=== PATIENT | female | born 1990 | race Caucasian/White ===

== ENCOUNTER 2021-09-25 02:14 | Observation (INO) ==
[2021-09-25] MEDS ORDERED: 0.9 % SODIUM CHLORIDE 1,000 ML IV ONE ×2 (02:20→03:27)
[2021-09-25] MEDS ORDERED: ONDANSETRON 4 MG/2 ML VIAL IV ONE (02:20)
--- NOTE | 2021-09-25 02:20 | Emergency Department Note ---
HPI General Chief complaint: Nausea/Vomiting/Diarrhea Stated complaint: nausea and vomiting Time Seen by Provider: 09/25/21 02:19 Source: patient Mode of arrival: ambulatory Limitations: no limitations History of Present Illness HPI Narrative: Narrative: 31-year-old female presents emergency department because of intractable vomiting. Patient states she was in good health up until 4 days ago. At that point she developed nausea and vomiting with diarrhea that continued for 2 days and left her exhausted and thirsty. She developed stomach pains from vomiting so much. She felt weak. Symptoms were constant. Nothing was making it better. She tried Pedialyte but that did not help. There is not associated with anything that she could put her finger on. Her discomfort was a 9 on a 0-to-10 scale unable to eat or drink. Dry heaves. Patient complains of dysuria and the need to urinate frequently. Bilateral lower back pain as well. Related Data Previous Rx's Medication Instructions Recorded trazodone 50 mg tablet 50 mg PO QHS PRN #30 tab 11/19/20 sertraline 25 mg tablet (Zoloft) 25 mg PO QDAY #30 tab 11/22/20 Allergies Allergy/AdvReac Type Severity Reaction Status Date / Time No Known Drug Allergies Allergy Verified 11/19/20 11:27 Review of Systems ROS ROS Narrative: Narrative: Constitutional: Denies fever Eyes: Denies eye pain ENT ED: Reports throat pain and rhinorrhea Cardiovascular: Denies chest pain Respiratory: Reports shortness of breath Gastrointestinal: Reports abdominal pain, nausea, vomiting and diarrhea Genitourinary: Reports dysuria Musculoskeletal: Reports back pain Integumentary: Denies rash Psychiatric: Reports anxiety and depression Hematological/Lymphatic: Denies easy bleeding PFSH Narrative Patient History Narrative: Narrative: Medical/Surgical/Family History All Active Problems (Updated 09/25/21 @ 07:31 by Minesh Crews MD) Severe sepsis (Acute) Pyelonephritis (Acute) Acute dehydration (Acute) Intractable vomiting (Acute) Anxiety and depression (Acute) Encounter for examination required by Department of Transportation (DOT) (Acute) Pedal edema (Acute) Alcoholism /alcohol abuse (Acute) Allergic reaction to bee sting (Acute) 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 if ASCUS or HPV positive= colposcopy. HPV negative and cytology negative age-appropriate retesting, discussed results with patient, she indicates understanding, encourage patient to quit tobacco and when she is ready she can contact me for Chantix No pertinent past medical history Surgical History H/O wisdom tooth extraction Hx of colonoscopy age 16 for IBS, normal Family History Grandfather Arthritis Paternal High blood pressure Maternal Mother High blood pressure Father High blood pressure Grandmother Migraines Brain cancer Social History Smoking Status: Current every day smoker Alcohol Intake Frequency: holiday/special occasion only Substance Use: marijuana Exam Narrative Narrative: Narrative: General Limitations: no limitations General appearance: Present alert and in distress Head Head: Present atraumatic, normocephalic and normal inspection Eye Eye: Present EOMI ENT ENT: Present mucous membranes dry Neck Neck: Present full ROM and trachea midline Respiratory Respiratory: Present normal lung sounds bilaterally; Absent respiratory distress or wheezes Cardiovascular Cardiovascular: Present regular rate and normal rhythm Adbominal Abdominal: Present soft and tenderness (Mild, suprapubic); Absent distention, guarding or rebound Extremities Extremities: Present normal inspection Back Back: Present tenderness (Bilateral lower back pain with palpation) Neurological Neurological: Present alert and oriented X3 Psychiatric Psychiatric: Present normal affect and normal mood Skin Skin: Present warm (WNL) and dry Course Reevaluation(s) Reevaluation #1: Nausea improved after the 4 mg of Zofran and the patient was able to sleep for a bit. She woke up and now the nausea has returned. She will be given an additional 4 mg of Zofran along with 5 mg of metoclopramide. Patient also complaining of frequent's burning sensation at the bladder for which I will give her Pyridium 200 mg p.o. Also complained of generalized pain especially in her lower back and to be given 2 mg of morphine for that. test came back negative. Urine dip suspicious for UTI with a positive nitrites. UA pending. CBC with normal white count normal hemoglobin. Lactic acid level elevated at 3.7 indicating sepsis. Patient was given Levaquin 750 mg IV for sepsis. 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 Time: 03:50 Reevaluation #2: Patient felt better for a bit and slept for 30 minutes but then nausea returned and vomiting. Patient request pain medication and she will be receiving morphine +1 mg of Ativan. Repeat lactate level shows continued elevation at 3.8. Sepsis exam done. In view of the patient having intractable nausea and vomiting and being septic with elevated lactic acid level I believe she will require admission and I have placed a call to our hospitalist. Time: 07:27 Vital Signs Vital signs: Vital Signs Pulse Rate 80 09/25/21 02:15 Respiratory Rate 17 09/25/21 02:15 Blood Pressure 114/91 09/25/21 02:15 Pulse Oximetry (%) 100 09/25/21 02:15 Pulse Rate 82 09/25/21 07:22 Respiratory Rate 17 09/25/21 02:15 Blood Pressure 116/77 09/25/21 07:22 Pulse Oximetry (%) 100 09/25/21 07:22 [facility] Narrative Medical decision making narrative: Narrative: Young woman presents to the emergency department with intractable vomiting of 4 days duration. Patient also had 2 days of diarrhea. Patient with dysuria. Differential diagnosis includes , urinary tract infection, pyelonephritis, gastroenteritis, food related illness, acute appendicitis, other. White count was 6.3 with a normal hemoglobin of 14.2. 67 neutrophils 24 lymphs, and 8 monos. Lactic acid level 3.8. Sodium 142 potassium 3.6, chloride 101, bicarb 26 with an anion gap of 15, all normal. BUN of 9 with creatinine of 0.6, normal. Glucose elevated at 124. Bilirubin normal at 0.3 with a mildly elevated AST of 52 and ALT that was normal at 28. Lipase was normal at 32. Emergency Department course patient received 4 mg of Zofran initially and was bolused a liter of normal saline. Her nausea improved and she was able to sleep for a bit but then she awoke and had nausea again. She was given additional 4 mg of Zofran along with 5 mg of metoclopramide IV. She was bolused 1 L of normal saline and her lactic acid level came back markedly elevated at 3.8. She was bolused a second liter of normal saline which will bring her total fluid volume greater than 30 mL/kg. test was negative. [id number] uri nalysis was positive for nitrites so suspicious for UTI. A formal urinalysis has been ordered. Patient was given 750 mg of Levaquin IV for sepsis. Patient source may be a pyelonephritis making this a good choice. Continued nausea vomiting. Elevated repeat lactate level 3.8. Consult hospitalist. 0730: discusse with Dr. Hernandez. he accepts and will see her when moved to inpatient side. Lab Data Lab results reviewed: Yes I reviewed the patient's lab results. Result diagrams: 09/25/21 02:41 09/25/21 02:41 Labs: Lab Results 09/25/21 09/25/21 09/25/21 Range/Units 02:41 02:41 04:12 WBC 6.3 (4.5-11.0) K/mcL RBC 4.52 (3.59-5.38) M/mcL Hgb 14.2 (11.2-15.7) g/dL Hct 40.7 (34.1-44.9) % MCV 90.0 (80.0-100.0) fL MCH 31.4 (26.0-34.0) pg MCHC 34.9 (31.0-36.0) g/dL RDW 12.4 (11.5-14.5) % Plt Count 193 (140-440) K/mcL MPV 10.7 H (7.4-10.4) fL Neut % (Auto) 67.1 (38.0-78.0) % Lymph % (Auto) 23.7 (15.5-49.0) % Crane % (Auto) 8.4 (1.0-12.0) % Eos % (Auto) 0 (0.0-7.0) % Baso % (Auto) 0.8 (0.0-2.0) % Lymph # (Auto) 1.50 (1.50-4.80) K/mcL [place] # (Auto) 0.53 (0.10-0.90) K/mcL Eos # (Auto) 0 (0.00-0.70) K/mcL Baso # (Auto) 0.05 (0.00-0.30) K/mcL Absolute Neutrophils 4.26 (1.80-8.00) K/mcL VBG Lactic Acid 3.8 H (0.5-2.0) mmol/L Sodium 142 (133-145) mmol/L Potassium 3.6 (3.3-5.1) mmol/L Chloride 101 (96-108) mmol/L Carbon Dioxide 26 (22-30) mmol/L Anion Gap 15.0 (8.0-16.0) BUN 9 (6-20) mg/dL Creatinine 0.6 (0.6-1.1) mg/dL GFR Calculation 119 Glucose 124 H (70-105) mg/dL Calcium 8.6 (8.6-10.4) mg/dL Total Bilirubin 0.3 (0.1-1.0) mg/dL AST 52 H (<32) U/L ALT 28 (<40) U/L Alkaline Phosphatase 63 (39-117) U/L Total Protein 6.4 (5.9-8.4) gm/dL Albumin 4.1 (3.2-5.2) gm/dL Globulin 2.3 (2.2-3.7) gm/dL Albumin/Globulin Ratio 1.8 (1.0-2.3) Lipase 32 (7-60) U/L Urine Color Yellow Urine Appearance Hazy A (Clear) Urine pH 7.0 (5.0-9.0) Ur Specific [place] 1.014 (1.000-1.035) Urine Protein Negative (Negative) mg/dL Urine Glucose (UA) Negative (Negative) mg/dL Urine Ketones Negative (Negative) mg/dL Urine Occult Blood Negative (Negative) mg/dL Urine Nitrate Pos A (Negative) Urine Bilirubin Negative (Negative) mg/dL Urine Urobilinogen Negative mg/dL Ur Leukocyte Esterase 75 A (Negative) /uL Urine RBC 1 (0-3) /hpf Urine WBC 3 (0-4) /hpf Ur Squamous Epith Cells 5 H (0-4) /hpf Urine Bacteria Mod A (0) /hpf Urine Mucus Few A (None) /hpf Ur Culture Indicated? No 09/25/21 Range/Units 05:51 WBC (4.5-11.0) K/mcL RBC (3.59-5.38) M/mcL Hgb (11.2-15.7) g/dL Hct (34.1-44.9) % MCV (80.0-100.0) fL MCH (26.0-34.0) pg MCHC (31.0-36.0) g/dL RDW (11.5-14.5) % Plt Count (140-440) K/mcL MPV (7.4-10.4) fL Neut % (Auto) (38.0-78.0) % Lymph % (Auto) (15.5-49.0) % Crane % (Auto) (1.0-12.0) % Eos % (Auto) (0.0-7.0) % Baso % (Auto) (0.0-2.0) % Lymph # (Auto) (1.50-4.80) K/mcL Crane # (Auto) (0.10-0.90) K/mcL Eos # (Auto) (0.00-0.70) K/mcL Baso # (Auto) (0.00-0.30) K/mcL Absolute Neutrophils (1.80-8.00) K/mcL VBG Lactic Acid 3.9 H* (0.5-2.0) mmol/L Sodium (133-145) mmol/L Potassium (3.3-5.1) mmol/L Chloride (96-108) mmol/L Carbon Dioxide (22-30) mmol/L Anion Gap (8.0-16.0) BUN (6-20) mg/dL Creatinine (0.6-1.1) mg/dL GFR Calculation Glucose (70-105) mg/dL Calcium (8.6-10.4) mg/dL Total Bilirubin (0.1-1.0) mg/dL AST (<32) U/L ALT (<40) U/L Alkaline Phosphatase (39-117) U/L Total Protein (5.9-8.4) gm/dL Albumin (3.2-5.2) gm/dL Globulin (2.2-3.7) gm/dL Albumin/Globulin Ratio (1.0-2.3) Lipase (7-60) U/L Urine Color Urine Appearance (Clear) Urine pH (5.0-9.0) Ur Specific [place] (1.000-1.035) Urine Protein (Negative) mg/dL Urine Glucose (UA) (Negative) mg/dL Urine Ketones (Negative) mg/dL Urine Occult Blood (Negative) mg/dL Urine Nitrate (Negative) Urine Bilirubin (Negative) mg/dL Urine Urobilinogen mg/dL Ur Leukocyte Esterase (Negative) /uL Urine RBC (0-3) /hpf Urine WBC (0-4) /hpf Ur Squamous Epith Cells (0-4) /hpf Urine Bacteria (0) /hpf Urine Mucus (None) /hpf Ur Culture Indicated? ED POC Tests ED POC Tests: HCG POC Results Negative Discharge Plan Patient/Caregiver Discharge Instructions Pt seen by [facility]ER/PA only: No Clinical Impression: Severe sepsis, Pyelonephritis, Acute dehydration, Intractable vomiting Patient Disposition: Xfer As Inpt ([facility]) Condition: Fair Follow up with: Diamond Newman ARNP [Primary Care Provider] - Prescriptions: No Action sertraline [Zoloft] 25 mg tablet 25 mg PO QDAY Qty: 30 1RF Rx Instructions: Take 25mg daily for two weeks and then 50mg daily. Take medication with food. trazodone 50 mg tablet 50 mg PO QHS PRN (Reason: insomnia) Qty: 30 1RF
[2021-09-25 03:11] LABS: Basophils # (Auto) 0.05 K/mcL (0.00-0.30); Basophils % (Auto) 0.8 % (0.0-2.0); Eosinophils # (Auto) 0 K/mcL (0.00-0.70); Eosinophils % (Auto) 0 % (0.0-7.0); Hematocrit 40.7 % (34.1-44.9); Hemoglobin 14.2 g/dL (11.2-15.7); Lymphocytes % (Auto) 23.7 % (15.5-49.0); Mean Corpuscular HGB Conc 34.9 g/dL (31.0-36.0); Mean Platelet Volume 10.7 fL (7.4-10.4); Monocytes # (Auto) 0.53 K/mcL (0.10-0.90); Monocytes % (Auto) 8.4 % (1.0-12.0); Neutrophils % (Auto) 67.1 % (38.0-78.0); Platelet Count 193 K/mcL (140-440); RBC 4.52 M/mcL (3.59-5.38); Red Cell Distribution Width 12.4 % (11.5-14.5); WBC 6.3 K/mcL (4.5-11.0)
[2021-09-25 03:29] LABS: ALT/SGPT 28 U/L (<40); AST/SGOT 52 U/L (<32); Albumin 4.1 gm/dL (3.2-5.2); Albumin/Globulin Ratio 1.8 (1.0-2.3); Alkaline Phosphatase 63 U/L (39-117); Bilirubin,Total 0.3 mg/dL (0.1-1.0); Blood Urea Nitrogen 9 mg/dL (6-20); Calcium 8.6 mg/dL (8.6-10.4); Carbon Dioxide 26 mmol/L (22-30); Chloride 101 mmol/L (96-108); Globulin 2.3 gm/dL (2.2-3.7); Glomerular Filtration Rate 119; Glucose 124 mg/dL (70-105)
[2021-09-25] MEDS ORDERED: LEVOFLOXACIN 750 MG/150 ML BAG IV ONE (03:43)
[2021-09-25] MEDS ORDERED: METOCLOPRAMIDE 10 MG/2 ML VIAL IV ONE ×2 (03:52→05:35)
[2021-09-25] MEDS ORDERED: ONDANSETRON 4 MG/2 ML VIAL IV PRN (03:52)
[2021-09-25] MEDS ORDERED: morphine 2 MG/ML VIAL IV ONE ×2 (03:55→06:16)
[2021-09-25] MEDS ORDERED: PHENAZOPYRIDINE 200 MG TABLET PO ONE (03:55)
[2021-09-25 04:56] LABS: Appearance,Urine HAZY (Clear); Bacteria,Urine MOD /hpf (0); Bilirubin,Urine Negative (Negative); Color,Urine YELLOW; Culture Indicated,Urine No; Glucose,Urine (UA) Negative (Negative); Ketones,Urine Negative (Negative); Leukocyte Esterase,Urine 75 /uL (Negative); Mucus,Urine FEW /hpf; Nitrate,Urine POS (Negative); Protein,Urine Negative (Negative); Specific Gravity,Urine 1.014 (1.000-1.035); Urine Blood Negative (Negative); Urine RBC 1 /hpf (0-3); Urine Squamous Epithelial Cell 5 /hpf (0-4); Urine WBC 3 /hpf (0-4); Urobilinogen,Urine Negative
[2021-09-25] MEDS ORDERED: diphenhydrAMINE 50 MG/ML VIAL IV ONE (05:35)
[2021-09-25] MEDS ORDERED: PROCHLORPERAZINE 10 MG/2 ML VIAL IV ONE (06:05)
[2021-09-25] MEDS ORDERED: LORazepam 2 MG/ML VIAL IV ONE ×2 (06:16→13:30)
--- NOTE | 2021-09-25 08:29 | Internal Med History&Physical ---
HPI History of Present Illness Patient information: Note initiated : 09/25/21 at 8:26 am Service Date, if different from initiated Date: [] Patient: Norah Luevano a 31 y/o F admitted on for N/V. Chief Complaint: [] History of present illness: Ms. Luevano is a 31 year old F Patient presents with nausea vomiting diarrhea for 3 days, diarrhea stopped couple days ago. In the ED she was having intractable nausea vomiting and found to have a lactate of 3.9. Concern for pyelonephritis given some back pain patient started on antibiotics. Urinalysis consistent with urinary infection. Patient states that she had bilateral low back pain she complains of dark urine, malodorous urine, and dysuria. Denies chest pain or abdominal pain other than from nausea vomiting, denies fever. She is also mildly tachycardic in the ED. Review of Systems: Pertinent positives as above. Denies headache/fever/chills/chest pain/cough/dyspnea. 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 if ASCUS or HPV positive= colposcopy. HPV negative and cytology negative age-appropriate retesting, discussed results with patient, she indicates understanding, encourage patient to quit tobacco and when she is ready she can contact me for Chantix No pertinent past medical history Surgical History H/O wisdom tooth extraction Hx of colonoscopy age 16 for IBS, normal Family History Grandfather Arthritis Paternal High blood pressure Maternal Mother High blood pressure Father High blood pressure Grandmother Migraines Brain cancer Social History adopted: No caregiver/support person: No foster care: Yes household members: family housing: apartment lives independently: Yes marital status: single education level: high school service: No group home: No occupational status: employed occupation: [employer] occupational exposures/hazards: Yes pets and animals: No leisure activities: sports, hunting and fishing hx recent travel: No sexually active: Yes alcohol intake frequency: holiday/special occasion only substance use type: marijuana MEDS/ALLERGIES Home Medications and Allergies Home Medications Medication Instructions Recorded Confirmed Type trazodone 50 mg tablet 50 mg PO QHS PRN #30 tab 11/19/20 11/19/20 Rx sertraline 25 mg tablet (Zoloft) 25 mg PO QDAY #30 tab 11/22/20 Rx Allergies Allergy/AdvReac Type Severity Reaction Status Date / Time No Known Drug Allergies Allergy Verified 11/19/20 11:27 EXAM Constitutional Vitals: Pulse Resp BP Pulse Ox 82 17 116/77 100 09/25/21 07:23 09/25/21 02:15 09/25/21 07:23 09/25/21 07:23 Exam: General: Alert, Awake, No acute Distress Eyes/N/T: EOMI, PERRL, Head/Neck: neck supple, normocephalic atraumatic CV: RRR, No murmurs, normal s1/s2 Pulm: Clear b/l, no wheezing/rhonchi/rales Abd: soft, nontender, +BS x4 BACK: CVA tenderness to palpation on the right Ext: no clubbing/cyanosis/edema Neuro: Alert, no focal deficits, moves all extremities, CN 2-12 grossly intact, symmetrical strength b/l upper/lower, sensations intact b/l upper/lower Skin: warm/dry DATA Data Completed and Pending Labs: Labs from last 24 hours 09/25/21 09/25/21 09/25/21 05:51 04:12 02:41 WBC RBC Hgb Hct MCV MCH MCHC RDW Plt Count MPV Neut % (Auto) Lymph % (Auto) Beadle % (Auto) Eos % (Auto) Baso % (Auto) Lymph # (Auto) [place]le # (Auto) Eos # (Auto) Baso # (Auto) Absolute Neutrophils VBG Lactic Acid 3.9 H* 3.8 H Sodium 142 Potassium 3.6 Chloride 101 Carbon Dioxide 26 Anion Gap 15.0 BUN 9 Creatinine 0.6 GFR Calculation 119 Glucose 124 H Calcium 8.6 Total Bilirubin 0.3 AST 52 H ALT 28 Alkaline Phosphatase 63 Total Protein 6.4 Albumin 4.1 Globulin 2.3 Albumin/Globulin Ratio 1.8 Lipase 32 Urine Color Yellow Urine Appearance Hazy A Urine pH 7.0 Ur Specific [place] 1.014 Urine Protein Negative Urine Glucose (UA) Negative Urine Ketones Negative Urine Occult Blood Negative Urine Nitrate Pos A Urine Bilirubin Negative Urine Urobilinogen Negative Ur Leukocyte Esterase 75 A Urine RBC 1 Urine WBC 3 Ur Squamous Epith Cells 5 H Urine Bacteria Mod A Urine Mucus Few A Ur Culture Indicated? No 09/25/21 02:41 WBC 6.3 RBC 4.52 Hgb 14.2 Hct 40.7 MCV 90.0 MCH 31.4 MCHC 34.9 RDW 12.4 Plt Count 193 MPV 10.7 H Neut % (Auto) 67.1 Lymph % (Auto) 23.7 Beadle % (Auto) 8.4 Eos % (Auto) 0 Baso % (Auto) 0.8 Lymph # (Auto) 1.50 Beadle # (Auto) 0.53 Eos # (Auto) 0 Baso # (Auto) 0.05 Absolute Neutrophils 4.26 VBG Lactic Acid Sodium Potassium Chloride Carbon Dioxide Anion Gap BUN Creatinine GFR Calculation Glucose Calcium Total Bilirubin AST ALT Alkaline Phosphatase Total Protein Albumin Globulin Albumin/Globulin Ratio Lipase Urine Color Urine Appearance Urine pH Ur Specific [place] Urine Protein Urine Glucose (UA) Urine Ketones Urine Occult Blood Urine Nitrate Urine Bilirubin Urine Urobilinogen Ur Leukocyte Esterase Urine RBC Urine WBC Ur Squamous Epith Cells Urine Bacteria Urine Mucus Ur Culture Indicated? A/P Narrative A/P Narrative: A: *Pyelonephritis, right: *Intractable N/V: *Tobacco abuse: P: -Abx, UC pending -Antiemetic -IVF -Smoking cessation counseling >3 minutes -ppx:SCD/Ambulation tid Time Spent With Patient Time: Total time spent is greater than 50% in coordination of care (as documented) at patient's floor/unit and/or counseling patient: Total time spent with greater than 50% in coordination of care (as documented) at patient's floor/unit and/or counseling patient:: 50 - 70 minutes
[2021-09-25] MEDS: ONDANSETRON 4 MG/2 ML VIAL IV PRN ×2 (10:55→19:32)
[2021-09-25] MEDS: HYDROmorphone 0.5 MG/0.5 ML SYRINGE IV PRN ×4 (10:55→23:58)
[2021-09-25] MEDS: DEXTROSE 5%-1/2NS 1,000 ML IV SCH ×3 (10:56→22:30)
[2021-09-25] MEDS ORDERED: POTASSIUM CHLORIDE 20 MEQ TABLET PO PRN ×2 (11:40)
[2021-09-25] MEDS ORDERED: POTASSIUM CHLORIDE 40 MEQ in DEXTROSE 5% IN WATER 500 ML IV PRN (11:40)
[2021-09-25] MEDS ORDERED: POLYETHYLENE GLYCOL 3350 17 GM PACKET PO PRN (11:40)
[2021-09-25] MEDS ORDERED: PROMETHAZINE 25 MG/ML VIAL IV PRN (11:40)
[2021-09-25] MEDS ORDERED: ACETAMINOPHEN 325 MG TABLET PO PRN (11:40)
[2021-09-25] MEDS ORDERED: diphenhydrAMINE 50 MG/ML VIAL IV PRN (11:40)
[2021-09-25] MEDS ORDERED: MAGNESIUM SULFATE 2 GM/50 ML BAG IV PRN (11:40)
[2021-09-25] MEDS ORDERED: SENNOSIDES 1 TABLET PO PRN (11:40)
[2021-09-25] MEDS ORDERED: IPRATROPIUM/ALBUTEROL 3 ML AMPUL.NEB NEB PRN (11:40)
[2021-09-25] MEDS ORDERED: cefTRIAXone 1 GM in DEXTROSE 5% IN WATER 50 ML IV SCH (11:45)
[2021-09-25] MEDS: NICOTINE 21 MG PATCH TOPICAL SCH (12:29)
[2021-09-25] MEDS: cefTRIAXone 1 GM VIAL IV SCH (12:29)
[2021-09-25] MEDS: 0.9 % SODIUM CHLORIDE 10 ML SYRINGE IV SCH ×3 (12:35→20:54)
[2021-09-25] MEDS ORDERED: chlordiazePOXIDE 25 MG CAPSULE PO PRN (16:21)
[2021-09-25] MEDS ORDERED: HALOPERIDOL LACTATE 5 MG/ML VIAL IM PRN (16:21)
--- NOTE | 2021-09-25 16:22 | Event Note ---
Event Note Event Note: Patient developing moderate alcohol withdrawal. Further information reveals drinks 4 drinks of vodka per day. Patient put on alcohol withdrawal protocol monitoring. Placed on telemetry monitoring.
[2021-09-25] MEDS ORDERED: THIAMINE 100 MG/ML VIAL IV SCH (16:25)
[2021-09-25] MEDS ORDERED: THIAMINE 100 MG/ML VIAL ONE (17:48)
[2021-09-25] MEDS: THIAMINE 100 MG in 0.9 % SODIUM CHLORIDE 50 ML IV ONE ×2 (17:49→17:56)
[2021-09-25] MEDS: HYDROcodone/APAP 5/325MG TABLET PO PRN (19:46)
[2021-09-25] MEDS: DOCUSATE SODIUM 100 MG CAPSULE PO SCH (20:55)
[2021-09-25] MEDS: LORazepam 2 MG/ML VIAL IV PRN (22:23)
[2021-09-26] MEDS: HYDROcodone/APAP 5/325MG TABLET PO PRN ×3 (01:48→10:10)
[2021-09-26] MEDS: 0.9 % SODIUM CHLORIDE 10 ML SYRINGE IV SCH ×2 (05:48)
[2021-09-26] MEDS: LORazepam 2 MG/ML VIAL IV PRN (05:49)
[2021-09-26 07:21] LABS: ALT/SGPT 34 U/L (<40); AST/SGOT 138 U/L (<32); Albumin 3.1 gm/dL (3.2-5.2); Albumin/Globulin Ratio 1.7 (1.0-2.3); Alkaline Phosphatase 52 U/L (39-117); Bilirubin,Direct 0.3 mg/dL (<0.3); Blood Urea Nitrogen 5 mg/dL (6-20); Calcium 7.8 mg/dL (8.6-10.4); Carbon Dioxide 23 mmol/L (22-30); Chloride 101 mmol/L (96-108); Globulin 1.8 gm/dL (2.2-3.7); Glomerular Filtration Rate 113; Glucose 113 mg/dL (70-105); Lactate Dehydrogenase 268 U/L (135-225); Phosphorous 2.9 mg/dL (2.5-4.5); Triglycerides 123 mg/dL (<150); Uric Acid 6.4 mg/dL (2.5-8.0)
[2021-09-26] MEDS ORDERED: POTASSIUM CHLORIDE 20 MEQ TABLET PO ONE (07:30)
[2021-09-26] MEDS ORDERED: MAGNESIUM SULFATE 24.36 MEQ in DEXTROSE 5% IN WATER 50 ML IV ONE (07:30)
[2021-09-26] MEDS: cefTRIAXone 1 GM VIAL IV SCH (07:57)
[2021-09-26] MEDS: HYDROmorphone 0.5 MG/0.5 ML SYRINGE IV PRN (08:14)
[2021-09-26] MEDS: DOCUSATE SODIUM 100 MG CAPSULE PO SCH (08:21)
--- NOTE | 2021-09-26 08:43 | Discharge Summary ---
Discharge Provider Provider Patient information: Note initiated : 09/26/21 at 8:39 am Service Date, if different from initiated Date: [] Patient: Norah Luevano 31 y/o F admitted on 09/25/21 for N/V. Chief Complaint: [] Date of admission: 09/25/21 09:10 Discharge date: 09/26/21 Primary care physician: DIOMEDES Kendall Consults: 09/25/21 Consult to Physician [CONS] Stat Comment: Consulting Provider: Gdowin Hernandez Reason For Exam: Physician to Consult Discharge Meds Discharge Medications Home Medications trazodone 50 mg tablet 50 mg PO QHS PRN #30 tab 11/19/20 [Rx Confirmed 11/19/20 Last Taken Unknown] sertraline 25 mg tablet (Zoloft) 25 mg PO QDAY #30 tab 11/22/20 [Rx Last Taken Unknown] levofloxacin 750 mg tablet 750 mg PO Q24H #4 tab 09/26/21 [Rx Last Taken Unknown] COURSE Hospital Course Hospital course: History of present illness: Ms. Luevano is a 31 year old F Patient presents with nausea vomiting diarrhea for 3 days, diarrhea stopped couple days ago. In the ED she was having intractable nausea vomiting and found to have a lactate of 3.9. Concern for pyelonephritis given some back pain patient started on antibiotics. Urinalysis consistent with urinary infection. Patient states that she had bilateral low back pain she complains of dark urine, malodorous urine, and dysuria. Denies chest pain or abdominal pain other than from nausea vomiting, denies fever. She is also mildly tachycardic in the ED. Patient developing moderate alcohol withdrawal. Further information reveals drinks 4 drinks of vodka per day. Patient put on alcohol withdrawal protocol monitoring. Placed on telemetry monitoring. 09/26 Patient calm this morning. Low CIWA currently. We will replete electrolytes m ag and potassium likely chronic abnormalities given alcohol use. No vomiting. A: *Pyelonephritis, right: *Intractable N/V: *Tobacco abuse: *Alcohol abuse: P: -Abx, UC pending -Smoking/alcohol cessation counseling Discharge diagnosis: Pyelonephritis nausea vomiting intractable tobacco and alcohol abuse Time Spent with Patient Time attestation: Total time spent providing and/or coordinating discharge services: Time spent: Greater than 30 minutes EXAM Constitutional Vitals: Temp Pulse Resp BP Pulse Ox 97.8 F 66 17 140/91 98 09/26/21 06:55 09/26/21 06:55 09/26/21 06:55 09/26/21 06:55 09/26/21 06:55 Discharge Data Data Completed and Pending Labs on day of discharge: Labs from last 24 hours 09/26/21 09/26/21 06:06 06:06 VBG Lactic Acid 2.6 H Sodium 136 Potassium 3.1 L Chloride 101 Carbon Dioxide 23 Anion Gap 12.0 BUN 5 L Creatinine 0.7 GFR Calculation 113 Glucose 113 H Uric Acid 6.4 Calcium 7.8 L Phosphorus 2.9 Magnesium 1.2 L Total Bilirubin 1.0 Direct Bilirubin 0.3 H GGT 191 H AST 138 H ALT 34 Alkaline Phosphatase 52 Lactate Dehydrogenase 268 H Total Protein 4.9 L Albumin 3.1 L Globulin 1.8 L Albumin/Globulin Ratio 1.7 Triglycerides 123 Discharge Plan Patient/Caregiver Discharge Instructions Activity: increase activity as tolerated Diet: Regular Diet Prescriptions: New levofloxacin 750 mg tablet 750 mg PO Q24H Qty: 4 0RF Rx Instructions: start 09/27/2021 Continued sertraline [Zoloft] 25 mg tablet 25 mg PO QDAY Qty: 30 1RF Rx Instructions: Take 25mg daily for two weeks and then 50mg daily. Take medication with food. trazodone 50 mg tablet 50 mg PO QHS PRN (Reason: insomnia) Qty: 30 1RF Follow Up Plan Follow up with: Diamond Newman ARNP [Primary Care Provider] - Patient Disposition: Home, Self-Care Prognosis: Fair Overall status at discharge: patient is progressing back to baseline Discharge Orders: Discharge Order (Routine); Ordered 09/26/21 Ordered By: Godwin Hernandez
[2021-09-26] MEDS ORDERED: FOLIC ACID 1 MG TABLET PO SCH (09:00)
[2021-09-26] MEDS ORDERED: THIAMINE 100 MG TABLET PO SCH (09:00)
[2021-09-26] MEDS ORDERED: MULTIVIT,THER IRON,CA,FA & MIN 1 TABLET PO SCH (09:00)
[2021-09-26] MEDS ORDERED: NICOTINE 21 MG PATCH TOPICAL SCH (10:00)
[2021-09-26] MEDS: NICOTINE 21 MG PATCH TOPICAL SCH (10:59)
--- NOTE | 2021-09-26 11:01 | Discharge Summary ---
Discharge Provider Provider IMPORTANT FOLLOW-UP INFORMATION FOR PCP: Decreased lisinopril to 20 mg daily > patient to monitor blood pressure twice daily and bring log to PCP, Incidental nodule found on chest imaging recommend follow-up CT in 3 to 6 months. Patient information: Note initiated : 09/26/21 at 11:00 am Service Date, if different from initiated Date: [] Patient: Norah Luevano 31 y/o F admitted on 09/25/21 for N/V. Chief Complaint: [] Date of admission: 09/25/21 09:10 Primary care physician: DIOMEDES Kendall Consults: 09/25/21 Consult to Physician [CONS] Stat Comment: Consulting Provider: Godwin Hernandez Reason For Exam: Physician to Consult Discharge Meds Discharge Medications Home Medications trazodone 50 mg tablet 50 mg PO QHS PRN #30 tab 11/19/20 [Rx Confirmed 11/19/20 Last Taken Unknown] sertraline 25 mg tablet (Zoloft) 25 mg PO QDAY #30 tab 11/22/20 [Rx Last Taken Unknown] levofloxacin 750 mg tablet 750 mg PO Q24H #4 tab 09/26/21 [Rx Last Taken Unknown] COURSE Time Spent with Patient Time attestation: Total time spent providing and/or coordinating discharge services: EXAM Constitutional Vitals: Temp Pulse Resp BP Pulse Ox 97.8 F 66 17 140/91 98 09/26/21 06:55 09/26/21 06:55 09/26/21 06:55 09/26/21 06:55 09/26/21 06:55 Discharge Data Data Completed and Pending Labs on day of discharge: Labs from last 24 hours 09/26/21 09/26/21 06:06 06:06 VBG Lactic Acid 2.6 H Sodium 136 Potassium 3.1 L Chloride 101 Carbon Dioxide 23 Anion Gap 12.0 BUN 5 L Creatinine 0.7 GFR Calculation 113 Glucose 113 H Uric Acid 6.4 Calcium 7.8 L Phosphorus 2.9 Magnesium 1.2 L Total Bilirubin 1.0 Direct Bilirubin 0.3 H GGT 191 H AST 138 H ALT 34 Alkaline Phosphatase 52 Lactate Dehydrogenase 268 H Total Protein 4.9 L Albumin 3.1 L Globulin 1.8 L Albumin/Globulin Ratio 1.7 Triglycerides 123 Preliminary micro results at discharge 09/25/21 04:12 Urine Culture - Preliminary Urine - Random Escherichia coli Discharge Plan Patient/Caregiver Discharge Instructions Activity: increase activity as tolerated Diet: Regular Diet Instructions: Levofloxacin (By mouth), Urinary Tract Infection in Women (DC) Activity Restrictions/Additional Instructions: Resume home diet as tolerated. Increase activity as tolerated. Take all medication as directed. Your medication was electronically transmitted to [facility] pharmacy. Take your prescription, insurance cards, and photo ID to bulk picker your medication. Return to ER for fever, chills, uncontrolled pain, inability to urinate or have a bowel movement, nausea and/or vomiting, swelling, redness, signs of infection, shortness of breath, chest pain, return of symptoms, or other acute symptom. This discharge packet is provided to you to help keep you informed about your care. We want to ensure you get everything you need when you go home. You will also be receiving a call from us in a few days to follow up with you and see how you are doing since your discharge. This gives us a chance to listen to any concerns you maybe experiencing since you were discharged or any additional needs you may have, as well as providing us feedback on your care experience. We strive to always provide excellent care and thank you for your feedback and for choosing [facility]. Prescriptions: New levofloxacin 750 mg tablet 750 mg PO Q24H Qty: 4 0RF Rx Instructions: start 09/27/2021 Continued sertraline [Zoloft] 25 mg tablet 25 mg PO QDAY Qty: 30 1RF Rx Instructions: Take 25mg daily for two weeks and then 50mg daily. Take medication with food. trazodone 50 mg tablet 50 mg PO QHS PRN (Reason: insomnia) Qty: 30 1RF Follow Up Plan Follow up with: Diamond Newman ARNP [Primary Care Provider] - 10/01/21 11:15 am Patient Disposition: Home, Self-Care Prognosis: Fair Overall status at discharge: patient is progressing back to baseline Discharge Orders: Discharge Order (Routine); Ordered 09/26/21 Ordered By: Godwin Hernandez
== END 2021-09-26 11:35 | disposition home or self-care (01) ==
LOC: ED 02:14 → MEDSUR 02:14
PROVIDERS: ADMIT Internal Medicine; ATTEND Internal Medicine

== ENCOUNTER 2021-10-29 13:52 | Inpatient (IN) ==
[2021-10-29] MEDS ORDERED: IOPAMIDOL 100 ML BOTTLE IV ONE (13:53)
[2021-10-29] MEDS ORDERED: ONDANSETRON 4 MG/2 ML VIAL IV ONE (14:16)
[2021-10-29] MEDS ORDERED: LORazepam 2 MG/ML VIAL IV ONE (14:16)
[2021-10-29] MEDS ORDERED: 0.9 % SODIUM CHLORIDE 1,000 ML IV ONE ×2 (14:16→15:42)
--- NOTE | 2021-10-29 14:53 | Emergency Department Note ---
HPI General Chief complaint: Nausea/Vomiting/Diarrhea Stated complaint: N/V Time Seen by Provider: 10/29/21 13:55 Source: patient Mode of arrival: ambulatory Limitations: no limitations and language barrier History of Present Illness HPI Narrative: 31-year-old female presenting with vomiting and right-sided abdominal pain for the last 3 days. Multiple episodes of nonbloody, nonbilious emesis. Patient reports a history of alcohol abuse up to 5 drinks per day. Last drink was 3 days ago. Patient states she feels dehydrated. She had a hospital admission last month for dehydration and pyelonephritis. Patient denies any dysuria or hematuria today. No fever, chest pain, or shortness of breath. Patient reports she feels very anxious. Related Data Previous Rx's Medication Instructions Recorded hydroxyzine HCl 25 mg tablet 25 mg PO TID PRN #30 tab 10/03/21 sertraline 25 mg tablet (Zoloft) 25 mg PO QDAY #30 tab 10/03/21 trazodone 50 mg tablet 50 mg PO QHS PRN #30 tab 10/03/21 Allergies Allergy/AdvReac Type Severity Reaction Status Date / Time No Known Drug Allergies Allergy Verified 10/29/21 13:55 Review of Systems ROS ROS Narrative: Narrative: Constitutional: Denies fever ENT ED: Denies throat pain Cardiovascular: Denies chest pain Respiratory: Denies shortness of breath or cough Gastrointestinal: Reports abdominal pain, nausea and vomiting Genitourinary: Denies dysuria or hematuria Musculoskeletal: Denies back pain Integumentary: Denies rash Neurological: Denies headache Psychiatric: Reports anxiety Hematological/Lymphatic: Denies easy bruising PFS Narrative Patient History Narrative: Narrative: Medical/Surgical/Family History All Active Problems (Updated 10/29/21 @ 20:15 by Jayden Dudley MD) Nausea and vomiting (Acute) Pyelonephritis (Acute) Anxiety and depression (Acute) Alcoholism /alcohol abuse (Acute) Allergic reaction to bee sting (Acute) 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 if ASCUS or HPV positive= colposcopy. HPV negative and cytology negative age-appropriate retesting, discussed results with patient, she indicates understanding, encourage patient to quit tobacco and when she is ready she can contact me for Chantix 10/03/2021 Pap collected today if abnormal will recommend referral to [facility] Surgical History H/O wisdom tooth extraction Hx of colonoscopy age 16 for IBS, normal Family History Grandfather Arthritis Paternal High blood pressure Maternal Mother High blood pressure Father High blood pressure Grandmother Migraines Brain cancer Social History Smoking Status: Current every day smoker Alcohol Intake Frequency: former alcohol drinker Substance Use: marijuana Exam Narrative Narrative: Narrative: General Limitations: no limitations and language barrier General appearance: Present alert, anxious and other (Appears uncomfortable) Head Head: Present atraumatic and normocephalic Eye Eye: Present normal appearance and EOMI; Absent scleral icterus or conjunctival injection ENT ENT: Present mucous membranes moist Neck Neck: Present trachea midline; Absent lymphadenopathy or thyromegaly Chest Chest: Present symmetric chest wall rise Respiratory Respiratory: Present normal lung sounds bilaterally; Absent respiratory distress, rales/crackles, wheezes, stridor or accessory muscle use Cardiovascular Cardiovascular: Present regular rate and normal rhythm; Absent systolic murmur or diastolic murmur Adbominal Abdominal: Present soft and tenderness (Right lower quadrant tenderness to palpation); Absent distention, guarding, rebound or rigidity Extremities Extremities: Present normal inspection; Absent pretibial edema Back Back: Absent CVA tenderness (R) or CVA tenderness (L) Neurological Neurological: Present alert and oriented X3; Absent motor sensory deficit Psychiatric Psychiatric: Present normal affect and anxious Skin Skin: Present warm (WNL) and dry Course Vital Signs Vital signs: Vital Signs Temperature 98.1 F 10/29/21 13:53 Pulse Rate 95 H 10/29/21 13:53 Respiratory Rate 20 10/29/21 13:53 Blood Pressure 116/77 10/29/21 13:53 Pulse Oximetry (%) 97 10/29/21 13:53 Temperature 98.3 F 10/29/21 19:14 Pulse Rate 90 10/29/21 19:14 Respiratory Rate 12 10/29/21 19:14 Blood Pressure 120/80 10/29/21 19:14 Pulse Oximetry (%) 97 10/29/21 19:14 MDM MDM Narrative Medical decision making narrative: 31-year-old female presenting with intractable nausea and vomiting. Labs notable for hypokalemia to 3.0. Lactic acid is elevated at 3.9. 2L normal saline, Zofran and IV Ativan given. CT abdomen shows moderate hepatomegaly and mild ileus. Patient with persistent nausea and vomiting in the ED, IV Reglan and Benadryl ordered. Will need admission for IV hydration, intractable vomiting, and possible alcohol withdrawal. Patient discussed with Dr. Burger, hospitalist, who agrees to admit. Lab Data Lab results reviewed: Yes I reviewed the patient's lab results. Result diagrams: 10/29/21 14:20 10/29/21 14:20 Labs: Lab Results 10/29/21 10/29/21 10/29/21 Range/Units 14:20 14:20 14:23 WBC 8.7 (4.5-11.0) K/mcL RBC 4.20 (3.59-5.38) M/mcL Hgb 12.4 (11.2-15.7) g/dL Hct 36.6 (34.1-44.9) % MCV 87.1 (80.0-100.0) fL MCH 29.5 (26.0-34.0) pg MCHC 33.9 (31.0-36.0) g/dL RDW 14.3 (11.5-14.5) % Plt Count 171 (140-440) K/mcL MPV 11.4 H (7.4-10.4) fL Neut % (Auto) 65.8 (38.0-78.0) % Lymph % (Auto) 25.6 (15.5-49.0) % [place] % (Auto) 6.9 (1.0-12.0) % Eos % (Auto) 0.7 (0.0-7.0) % Baso % (Auto) 1.0 (0.0-2.0) % Lymph # (Auto) 2.22 (1.50-4.80) K/mcL [place] # (Auto) 0.60 (0.10-0.90) K/mcL Eos # (Auto) 0.06 (0.00-0.70) K/mcL Baso # (Auto) 0.09 (0.00-0.30) K/mcL Absolute Neutrophils 5.71 (1.80-8.00) K/mcL VBG Lactic Acid 3.9 H* (0.5-2.0) mmol/L Sodium 141 (133-145) mmol/L Potassium 3.0 L (3.3-5.1) mmol/L Chloride 97 (96-108) mmol/L Carbon Dioxide 26 (22-30) mmol/L Anion Gap 18.0 H (8.0-16.0) BUN 7 (6-20) mg/dL Creatinine 0.5 L (0.6-1.1) mg/dL GFR Calculation 127 Glucose 98 (70-105) mg/dL Calcium 8.5 L (8.6-10.4) mg/dL Total Bilirubin 0.8 (0.1-1.0) mg/dL AST 30 (<32) U/L ALT 17 (<40) U/L Alkaline Phosphatase 49 (39-117) U/L Total Protein 6.0 (5.9-8.4) gm/dL Albumin 4.4 (3.2-5.2) gm/dL Globulin 1.6 L (2.2-3.7) gm/dL Albumin/Globulin Ratio 2.8 H (1.0-2.3) Lipase 22 (7-60) U/L ED POC Tests ED POC Tests: HCG POC Results Negative Radiology Data Radiology results reviewed: Yes I reviewed the patient's radiology results. Radiology results narrative: Ordering Physician:Jayden Dudley M.D. Date of Service:10/29/21 Procedure(s):CT abdomen pelvis w con CLINICAL INFORMATION: Vomiting. History of sepsis two weeks prior COMPARISON: None. TECHNIQUE: Following enteric contrast, 80 cc of Isovue-370 were injected intravenously, and 60 seconds later, 0.625 mm helical slices were obtained from the mid heart through the subtrochanteric regions. Following reconstruction, 2.5 mm sagittal, coronal and axial reformatted images were processed and reviewed at bone, lung and soft tissue windows. Five minutes later, 0.625 mm helical slices were obtained from the mid heart through the kidneys and viewed at soft tissue windows.The exam was performed using radiation dose optimization techniques including, but not limited to, automated exposure control, adjustment of the mA and/or kV according to patient size and use of iterative reconstruction technique. FINDINGS: The lung bases are clear. No effusions. The visualized heart is grossly normal. Abdominal images moderate hepatomegaly with diffuse fatty infiltration. No focal hepatic lesions. The gallbladder is moderately enlarged. Intrahepatic and common bile ducts are normal caliber CBD is 6 mm. Both kidneys, adrenal glands, spleen, pancreas and aorta, including aortic branches, are normal in size, configuration and attenuation without focal lesion. There is no free air or adenopathy. A small amount of physiologic free fluid is noted in the deep true pelvis Pelvic images show normal urinary bladder. Uterus is anteflexed and normal in size spanning 8 x 3.3 cm. Both ovaries are unremarkable. There is marked congestion of the periuterine and paraovarian venous plexus bilaterally. The stomach, small bowel and large bowel though symmetric dilatation compatible with moderate ileus. Medial pericecal appendix is normal. Bone windows show no osseous abnormality IMPRESSION: Moderate hepatomegaly with diffuse fatty change. Please corelate with LFTs. Suspect primary hepatopathy. Moderate enlargement of the periuterine and paraovarian venous plexus bilaterally. The patient is at risk for pelvic congestion syndrome. Mild ileus. Interpreted and Authenticated by: Amadeo Shell 10/29/21 Discharge Plan Patient/Caregiver Discharge Instructions Pt seen by APPRAISAL ANALYST/PA only: No Clinical Impression: Nausea and vomiting Patient Disposition: Xfer As Inpt ([facility] Condition: Fair Discharge Date/Time: 10/29/21 17:24 Discharge Comment: W/c to [facility]
[2021-10-29 15:19] LABS: Basophils # (Auto) 0.09 K/mcL (0.00-0.30); Eosinophils # (Auto) 0.06 K/mcL (0.00-0.70); Eosinophils % (Auto) 0.7 % (0.0-7.0); Hematocrit 36.6 % (34.1-44.9); Hemoglobin 12.4 g/dL (11.2-15.7); Lymphocytes # (Auto) 2.22 K/mcL (1.50-4.80); Lymphocytes % (Auto) 25.6 % (15.5-49.0); Mean Cell Volume 87.1 fL (80.0-100.0); Mean Corpuscular HGB Conc 33.9 g/dL (31.0-36.0); Mean Platelet Volume 11.4 fL (7.4-10.4); Monocytes % (Auto) 6.9 % (1.0-12.0); Neutrophils % (Auto) 65.8 % (38.0-78.0); Platelet Count 171 K/mcL (140-440); Red Cell Distribution Width 14.3 % (11.5-14.5); WBC 8.7 K/mcL (4.5-11.0)
--- NOTE | 2021-10-29 15:31 | Cat Scan Report ---
CLINICAL INFORMATION: Vomiting. History of sepsis two weeks prior COMPARISON: None. TECHNIQUE: Following enteric contrast, 80 cc of Isovue-370 were injected intravenously, and 60 seconds later, 0.625 mm helical slices were obtained from the mid heart through the subtrochanteric regions. Following reconstruction, 2.5 mm sagittal, coronal and axial reformatted images were processed and reviewed at bone, lung and soft tissue windows. Five minutes later, 0.625 mm helical slices were obtained from the mid heart through the kidneys and viewed at soft tissue windows.The exam was performed using radiation dose optimization techniques including, but not limited to, automated exposure control, adjustment of the mA and/or kV according to patient size and use of iterative reconstruction technique. FINDINGS: The lung bases are clear. No effusions. The visualized heart is grossly normal. Abdominal images moderate hepatomegaly with diffuse fatty infiltration. No focal hepatic lesions. The gallbladder is moderately enlarged. Intrahepatic and common bile ducts are normal caliber CBD is 6 mm. Both kidneys, adrenal glands, spleen, pancreas and aorta, including aortic branches, are normal in size, configuration and attenuation without focal lesion. There is no free air or adenopathy. A small amount of physiologic free fluid is noted in the deep true pelvis Pelvic images show normal urinary bladder. Uterus is anteflexed and normal in size spanning 8 x 3.3 cm. Both ovaries are unremarkable. There is marked congestion of the periuterine and paraovarian venous plexus bilaterally. The stomach, small bowel and large bowel though symmetric dilatation compatible with moderate ileus. Medial pericecal appendix is normal. Bone windows show no osseous abnormality IMPRESSION: Moderate hepatomegaly with diffuse fatty change. Please corelate with LFTs. Suspect primary hepatopathy. Moderate enlargement of the periuterine and paraovarian venous plexus bilaterally. The patient is at risk for pelvic congestion syndrome. Mild ileus. Interpreted and Authenticated by: Amadeo Shell 10/29/21
[2021-10-29 15:40] LABS: ALT/SGPT 17 U/L (<40); AST/SGOT 30 U/L (<32); Albumin 4.4 gm/dL (3.2-5.2); Albumin/Globulin Ratio 2.8 (1.0-2.3); Alkaline Phosphatase 49 U/L (39-117); Bilirubin,Total 0.8 mg/dL (0.1-1.0); Blood Urea Nitrogen 7 mg/dL (6-20); Calcium 8.5 mg/dL (8.6-10.4); Carbon Dioxide 26 mmol/L (22-30); Chloride 97 mmol/L (96-108); Globulin 1.6 gm/dL (2.2-3.7); Glomerular Filtration Rate 127; Glucose 98 mg/dL (70-105)
[2021-10-29] MEDS ORDERED: diphenhydrAMINE 50 MG/ML VIAL IV ONE (15:42)
[2021-10-29] MEDS ORDERED: METOCLOPRAMIDE 10 MG/2 ML VIAL IV ONE (15:42)
[2021-10-29] MEDS ORDERED: POTASSIUM CHLORIDE 20 MEQ in DEXTROSE 5% IN WATER 250 ML IV ONE (15:44)
[2021-10-29] MEDS ORDERED: CALCIUM CARBONATE 500 MG TAB.CHEW CHEWED PRN (16:30)
[2021-10-29] MEDS ORDERED: hydrALAZINE 20 MG/ML VIAL IV PRN (16:30)
[2021-10-29] MEDS ORDERED: MELATONIN 3 MG TABLET PO PRN (16:30)
[2021-10-29] MEDS ORDERED: diphenhydrAMINE 50 MG/ML VIAL IV PRN (16:30)
[2021-10-29] MEDS ORDERED: ONDANSETRON 4 MG ODT TABLET SL PRN (16:30)
[2021-10-29] MEDS ORDERED: MAGNESIUM HYDROXIDE 30 ML ORAL.SUSP PO PRN (16:30)
[2021-10-29] MEDS ORDERED: traMADol 50 MG TABLET PO PRN (16:30)
[2021-10-29] MEDS ORDERED: MAG HYDROX/AL HYDROX/SIMETH 30 ML ORAL.SUSP PO PRN (16:30)
[2021-10-29] MEDS ORDERED: ALBUTEROL SULFATE 2.5 MG/3 ML NEBULIZER NEB PRN (16:36)
[2021-10-29] MEDS: ONDANSETRON 4 MG/2 ML VIAL IV PRN (17:52)
--- NOTE | 2021-10-29 18:10 | Internal Med History&Physical ---
HPI History of Present Illness Patient information: Note initiated : 10/29/21 at 6:09 pm Service Date, if different from initiated Date: [] Patient: Norah Luevano 31 y/o F admitted on 10/29/21 for N/V. Chief Complaint: [] History of present illness: 31-year-old female with a history of alcoholic liver disease and recent episode of alcohol withdrawal and pyelonephritis was brought to the ER because of persistent abdominal pain nausea vomiting for last 3 days patient had multiple episodes of nonbilious emesis history of significant alcohol intake 5 drinks per day and last drink was 3 days ago patient was having anxiety and tremors. Initial evaluation in the ED showing significant dehydration hypokalemia lactic acidosis and alcohol withdrawal. No evidence of any infection Review of systems Constitutional: No reported fatigue no chills, no fever Eyes: no vision changes or pain Cardiovascular: no chest pain, no palpitations Respiratory: no cough or dyspnea Gastrointestinal: no nausea and stil have abdominal discomfort. Genitourinary: no dysuria or difficulty voiding Musculoskeletal: no arthralgia or myalgia Integumentary: no skin lesion or wound Neurological: no focal weakness or numbness Psychiatric: no anxiety or depression Physical exam Head: No bruises, disheveled poor hygiene eyes: normal appearance, no scleral icterus. Neck: full ROM Respiratory: no respiratory distress. Cardiovascular: normal rate and rhythm, S1, S2. GI/Abdominal: Nontender Extremities: full range of motion, nontender. Neurological: CN II-XII intact, intact motor, intact sensation. 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 if ASCUS or HPV positive= colposcopy. HPV negative and cytology negative age-appropriate retesting, discussed results with patient, she indicates understanding, encourage patient to quit tobacco and when she is ready she can contact me for Chantix 10/03/2021 Pap collected today if abnormal will recommend referral to [facility] Surgical History H/O wisdom tooth extraction Hx of colonoscopy age 16 for IBS, normal Family History Grandfather Arthritis Paternal High blood pressure Maternal Mother High blood pressure Father High blood pressure Grandmother Migraines Brain cancer Social History (Updated 10/03/21 @ 12:47 by DIOMEDES Kendall) adopted: No caregiver/support person: No foster care: Yes household members: family housing: apartment lives independently: Yes marital status: single education level: high school service: No intermediate: No occupational status: employed occupation: [employer] occupational exposures/hazards: Yes pets and animals: No leisure activities: sports, hunting and fishing hx recent travel: No sexually active: Yes alcohol intake frequency: former alcohol drinker substance use type: marijuana MEDS/ALLERGIES Home Medications and Allergies Home Medications Medication Instructions Recorded Confirmed Type hydroxyzine HCl 25 mg tablet 25 mg PO TID PRN #30 tab 10/03/21 10/03/21 Rx sertraline 25 mg tablet (Zoloft) 25 mg PO QDAY #30 tab 10/03/21 10/03/21 Rx trazodone 50 mg tablet 50 mg PO QHS PRN #30 tab 10/03/21 10/03/21 Rx fluconazole 150 mg tablet 150 mg PO ONCE #1 tab 10/10/21 Rx (Diflucan) Allergies Allergy/AdvReac Type Severity Reaction Status Date / Time No Known Drug Allergies Allergy Verified 10/29/21 13:55 EXAM Constitutional Vitals: Temp Pulse Resp BP Pulse Ox 98.1 F 70 18 124/92 97 10/29/21 17:28 10/29/21 17:28 10/29/21 17:28 10/29/21 17:28 10/29/21 17:28 DATA Data Completed and Pending Labs: Labs from last 24 hours 10/29/21 10/29/21 10/29/21 14:23 14:20 14:20 WBC 8.7 RBC 4.20 Hgb 12.4 Hct 36.6 MCV 87.1 MCH 29.5 MCHC 33.9 RDW 14.3 Plt Count 171 MPV 11.4 H Neut % (Auto) 65.8 Lymph % (Auto) 25.6 [place] % (Auto) 6.9 Eos % (Auto) 0.7 Baso % (Auto) 1.0 Lymph # (Auto) 2.22 [place] # (Auto) 0.60 Eos # (Auto) 0.06 Baso # (Auto) 0.09 Absolute Neutrophils 5.71 VBG Lactic Acid 3.9 H* Sodium 141 Potassium 3.0 L Chloride 97 Carbon Dioxide 26 Anion Gap 18.0 H BUN 7 Creatinine 0.5 L GFR Calculation 127 Glucose 98 Calcium 8.5 L Total Bilirubin 0.8 AST 30 ALT 17 Alkaline Phosphatase 49 Total Protein 6.0 Albumin 4.4 Globulin 1.6 L Albumin/Globulin Ratio 2.8 H Lipase 22 A/P Narrative A/P Narrative: Acute alcohol withdrawal Patient has history of significant alcoholism Patient has been in the process of going to rehab voluntarily CIWA protocol initiated with a lorazepam 1 mg every 6 hourly and every 4 hours as needed Persistent nausea vomiting 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 or withdrawal Start the patient on Reglan Zofran as needed Alcoholic liver disease Patient CT scan showing no features of early liver cirrhosis Explained to the patient Needs to follow-up with gastroenterology outpatient Lactic acidosis probably due to liver disease Hypokalemia Probably due to poor nutrition and nausea vomiting next Potassium replacement ordered Will continue p.o. when she able to take oral DVT prophylaxis-subcu Lovenox CODE STATUS-full code Time Spent With Patient Time: Total time spent is greater than 50% in coordination of care (as documented) at patient's floor/unit and/or counseling patient:
[2021-10-29] MEDS: LORazepam 2 MG/ML VIAL IV PRN ×3 (18:39→23:56)
[2021-10-29] MEDS ORDERED: LORazepam 2 MG/ML VIAL ONE (18:45)
[2021-10-29] MEDS: DEXTROSE 5%-1/2NS 1,000 ML IV SCH (19:29)
[2021-10-29] MEDS: SENNOSIDES 1 TABLET PO SCH (20:03)
[2021-10-29] MEDS: 0.9 % SODIUM CHLORIDE 10 ML SYRINGE IV SCH (20:03)
[2021-10-29] MEDS: DOCUSATE SODIUM 100 MG CAPSULE PO SCH (20:03)
[2021-10-29] MEDS: FAMOTIDINE/PF 20 MG/2 ML VIAL IV SCH (20:57)
[2021-10-29] MEDS ORDERED: ZOLPIDEM 5 MG TABLET PO PRN (21:00)
[2021-10-29] MEDS ORDERED: 0.9 % SODIUM CHLORIDE 10 ML SYRINGE IV SCH (22:00)
[2021-10-30] MEDS: LORazepam 2 MG/ML VIAL IV PRN ×8 (01:28→23:35)
[2021-10-30] MEDS: ONDANSETRON 4 MG/2 ML VIAL IV PRN ×2 (02:04→14:41)
[2021-10-30] MEDS: DEXTROSE 5%-1/2NS 1,000 ML IV SCH ×4 (04:56→22:18)
[2021-10-30] MEDS: 0.9 % SODIUM CHLORIDE 10 ML SYRINGE IV SCH ×3 (04:57→21:29)
[2021-10-30] MEDS: ACETAMINOPHEN 325 MG TABLET PO PRN ×2 (06:01→13:24)
[2021-10-30 06:19] LABS: Basophils # (Auto) 0.07 K/mcL (0.00-0.30); Basophils % (Auto) 0.9 % (0.0-2.0); Eosinophils # (Auto) 0.13 K/mcL (0.00-0.70); Eosinophils % (Auto) 1.6 % (0.0-7.0); Hematocrit 32.4 % (34.1-44.9); Lymphocytes # (Auto) 2.33 K/mcL (1.50-4.80); Lymphocytes % (Auto) 28.6 % (15.5-49.0); Mean Cell Volume 87.8 fL (80.0-100.0); Mean Platelet Volume 11.8 fL (7.4-10.4); Monocytes # (Auto) 0.48 K/mcL (0.10-0.90); Monocytes % (Auto) 5.9 % (1.0-12.0); Platelet Count 127 K/mcL (140-440); RBC 3.69 M/mcL (3.59-5.38); Red Cell Distribution Width 13.9 % (11.5-14.5); WBC 8.2 K/mcL (4.5-11.0)
[2021-10-30 07:13] LABS: ALT/SGPT 34 U/L (<40); AST/SGOT 181 U/L (<32); Albumin 3.6 gm/dL (3.2-5.2); Albumin/Globulin Ratio 2.3 (1.0-2.3); Alkaline Phosphatase 58 U/L (39-117); Bilirubin,Total 1.5 mg/dL (0.1-1.0); Blood Urea Nitrogen 5 mg/dL (6-20); Calcium 7.9 mg/dL (8.6-10.4); Carbon Dioxide 24 mmol/L (22-30); Chloride 100 mmol/L (96-108); Globulin 1.6 gm/dL (2.2-3.7); Glomerular Filtration Rate 119; Glucose 99 mg/dL (70-105)
[2021-10-30] MEDS: PROMETHAZINE 25 MG/ML VIAL IV PRN (07:51)
[2021-10-30] MEDS: DOCUSATE SODIUM 100 MG CAPSULE PO SCH ×2 (08:48→19:43)
[2021-10-30] MEDS ORDERED: POTASSIUM CHLORIDE 80 MEQ in DEXTROSE 5% IN WATER 1,000 ML IV ONE (08:56)
[2021-10-30] MEDS ORDERED: MAGNESIUM SULFATE 4 GM/100 ML BAG IV ONE (08:57)
[2021-10-30] MEDS ORDERED: THIAMINE 100 MG TABLET PO SCH (09:00)
[2021-10-30] MEDS ORDERED: FOLIC ACID 1 MG TABLET PO SCH (09:00)
[2021-10-30] MEDS ORDERED: [UNRECOGNIZED DRUG - REMARK] IV SCH (10:00)
[2021-10-30] MEDS ORDERED: [UNRECOGNIZED DRUG - REMARK] IV SCH (10:15)
[2021-10-30] MEDS: FAMOTIDINE/PF 20 MG/2 ML VIAL IV SCH ×2 (10:21→19:55)
[2021-10-30] MEDS: ENOXAPARIN 40 MG/0.4 ML SYRINGE SQ SCH (10:22)
[2021-10-30] MEDS: MULTIVIT,THER IRON,CA,FA & MIN 1 TABLET PO SCH (10:44)
[2021-10-30] MEDS: MAGNESIUM OXIDE 400 MG TABLET PO SCH (10:47)
--- NOTE | 2021-10-30 11:22 | Internal Med Progress Note ---
SUBJECTIVE Subjective Patient information: Note initiated : 10/30/21 at 11:22 am Service Date, if different from initiated Date: [] Patient: Norah Luevano 31 y/o F admitted on 10/29/21 for N/V. Chief Complaint: [] Interval history: 31-year-old female with a history of alcoholic liver disease and recent episode of alcohol withdrawal and pyelonephritis was brought to the ER because of persistent abdominal pain nausea vomiting for last 3 days patient had multiple episodes of nonbilious emesis history of significant alcohol intake 5 drinks per day and last drink was 3 days ago patient was having anxiety and tremors. Initial evaluation in the ED showing significant dehydration hypokalemia lactic acidosis and alcohol withdrawal. No evidence of any infection 10/30 Patient continued to be hypokalemic and hypomagnesemic and ordered replacement She is having severe withdrawal with a CIWA score 25 and patient was moved to the progressive care unit Patient's abdominal pain feeling better Ordered and add on lipase Review of systems Constitutional: No reported fatigue no chills, no fever Eyes: no vision changes or pain Cardiovascular: no chest pain, no palpitations Respiratory: no cough or dyspnea Gastrointestinal: Abdominal discomfort improving continued having nausea and episodes of vomiting Genitourinary: no dysuria or difficulty voiding Musculoskeletal: no arthralgia or myalgia Integumentary: no skin lesion or wound Neurological: no focal weakness or numbness Psychiatric: Very anxious Physical exam Head: No bruises, disheveled poor hygiene eyes: normal appearance, no scleral icterus. Neck: full ROM Respiratory: no respiratory distress. Cardiovascular: normal rate and rhythm, S1, S2. GI/Abdominal: Nontender Extremities: full range of motion, nontender. Neurological: CN II-XII intact, intact motor, intact sensation. Psychiatric: Appears to be anxious Skin: warm, normal color Constitutional Vitals: Vital Signs Temp Pulse Resp BP Pulse Ox 98.6 F 54 L 14 140/99 99 10/30/21 07:20 10/30/21 08:01 10/30/21 08:01 10/30/21 08:01 10/30/21 08:01 Period Temp Pulse Resp BP Sys/Erickson Pulse Ox Last 24 Hr 98.1 F-98.6 F 54-95 12-20 114-149/77-102 96-99 Intake and Output 06/10/30/21 10/30/21 21:59 05:59 13:59 Intake Total 2150 1220 Output Total 350 Balance 2150 870 Weight 76.158 kg Intake & Output: Intake & Output 10/29/21 10/30/21 10/30/21 21:59 05:59 13:59 Intake Total 2150 1220 Output Total 350 Balance 2150 870 Weight 76.158 kg Intake: IV 2150 970 Sodium Chloride 0.9% 1,000 ml @ 2000 Wide Open IV BOLUS ONE Rx#: [id number] Dextrose 5%-1/2Ns IV Solution 1 970 ,000 ml @ 100 mls/hr IV .Q10H [facility] Rx#:[id number] Potassium Chloride 20 Meq In 150 Dextrose 5% in Water 250 ml @ 130 mls/hr IV ONCE ONE Rx#: [id number] Oral 250 Output: Void Amount 350 Other: Meal jello x1 Percent of Meal Consumed 100% Urine Appearance Clear Urine Color Tea Colored Urine Odor Normal Stool Size Large Stool Color Green Stool Consistency Liquid # of times incontinent of 1 Bowels OBJ DATA Labs CBC & Chem 7: 10/30/21 05:07 10/30/21 05:07 Labs: Abnormal Lab Results 10/30/21 10/30/21 10/29/21 05:07 05:07 14:23 Hgb 11.0 L Hct 32.4 L Plt Count 127 L MPV 11.8 H VBG Lactic Acid 3.9 H* Potassium 3.0 L Anion Gap BUN 5 L Creatinine Calcium 7.9 L Magnesium 1.2 L Total Bilirubin 1.5 H AST 181 H Total Protein 5.2 L Globulin 1.6 L Albumin/Globulin Ratio 10/29/21 10/29/21 14:20 14:20 Hgb Hct Plt Count MPV 11.4 H VBG Lactic Acid Potassium 3.0 L Anion Gap 18.0 H BUN Creatinine 0.5 L Calcium 8.5 L Magnesium Total Bilirubin AST Total Protein Globulin 1.6 L Albumin/Globulin Ratio 2.8 H Meds: Medications Acetaminophen (Acetaminophen 325 Mg Tablet) 650 mg PO Q6HP PRN; Protocol PRN Reason: Per Pain Protocol/Fever > 101 Last Admin: 10/30/21 06:01 Dose: 650 mg Documented by: Al Hydrox/Mg Hydrox/Simethicone (Mag Hydrox/Al Hydrox/Simeth 30 Ml Oral.Susp) 30 ml PO Q6HP PRN PRN Reason: Dyspepsia Albuterol Sulfate (Albuterol Sulfate 2.5 Mg/3 Ml Nebulizer) 2.5 mg NEB Q2HP PRN PRN Reason: Shortness Of Breath Calcium Carbonate/Glycine (Calcium Carbonate 500 Mg Tab.Chew) 1,000 mg CHEWED Q4HP PRN PRN Reason: Dyspepsia Diphenhydramine HCl (Diphenhydramine 50 Mg/Ml Vial) 25 mg IV Q6HP PRN PRN Reason: Allergic Symptoms Docusate Sodium (Docusate Sodium 100 Mg Capsule) 100 mg PO BID [facility] Last Admin: 10/30/21 08:48 Dose: Not Given Documented by: Enoxaparin Sodium (Enoxaparin 40 Mg/0.4 Ml Syringe) 40 mg SQ DAILY [facility] Last Admin: 10/30/21 10:22 Dose: 40 mg Documented by: Famotidine (Famotidine/Pf 20 Mg/2 Ml Vial) 20 mg IV Q12 [facility] Last Admin: 10/30/21 10:21 Dose: 20 mg Documented by: Folic Acid (Folic Acid 1 Mg Tablet) 1 mg PO DAILY [facility] Hydralazine HCl (Hydralazine 20 Mg/Ml Vial) 10 mg IV Q4-6HP PRN PRN Reason: Hypertension Dextrose/Sodium Chloride (Dextrose 5%-1/2ns Iv Solution) 1,000 mls @ 100 mls/hr IV .Q10H [facility] Last Admin: 10/30/21 05:27 Dose: 100 mls/hr Documented by: Potassium Chloride 80 meq/ (Dextrose) 1,040 mls @ 130 mls/hr IV ONCE ONE Stop: 10/30/21 16:55 Last Admin: 10/30/21 09:37 Dose: 130 mls/hr Documented by: Magnesium Sulfate (Magnesium Sulfate) 4 gm in 100 mls @ 25 mls/hr IV ONCE ONE Stop: 10/30/21 12:56 Last Admin: 10/30/21 09:05 Dose: 25 mls/hr Documented by: Thiamine HCl 100 mg/Multivitamins/Minerals 10 ml/Folic Acid 1 mg/ Potassium Chloride 20 meq/ Sodium Chloride 1,021.2 mls @ 100 mls/hr IV .[id number] [facility] Stop: 10/30/21 20:15 Last Admin: 10/30/21 10:46 Dose: 100 mls/hr Documented by: Iron Carb/Multivit/Equine Intern/Folic Acid (Multivit,Ther Iron,Ca,Fa & Min 1 Tablet) 1 tab PO DAILY [facility] Last Admin: 10/30/21 10:44 Dose: Not Given Documented by: Lorazepam (Lorazepam 2 Mg/Ml Vial) 1 mg IV Q2-4HP PRN PRN Reason: ANXIETY/SEDATION Last Admin: 10/30/21 08:04 Dose: 1 mg Documented by: Lorazepam (Lorazepam 2 Mg/Ml Vial) 0 mg IV Q4HP PRN; Protocol PRN Reason: Alcohol Withdrawal/Assess CIWA Last Admin: 10/30/21 05:34 Dose: 3 mg Documented by: Magnesium Hydroxide (Magnesium Hydroxide 30 Ml Oral.Susp) 30 ml PO DAILYP PRN PRN Reason: Constipation Magnesium Oxide (Magnesium Oxide 400 Mg Tablet) 800 mg PO DAILY [facility] Last Admin: 10/30/21 10:47 Dose: 800 mg Documented by: Melatonin (Melatonin 3 Mg Tablet) 3 mg PO HSP PRN PRN Reason: Insomnia Ondansetron HCl (Ondansetron 4 Mg/2 Ml Vial) 4 mg IV Q6HP PRN PRN Reason: Nausea And Vomiting Last Admin: 10/30/21 02:04 Dose: 4 mg Documented by: Ondansetron HCl (Ondansetron 4 Mg Odt Tablet) 4 mg SL Q6HP PRN PRN Reason: Nausea And Vomiting Promethazine HCl (Promethazine 25 Mg/Ml Vial) 12.5 mg IV Q6HP PRN PRN Reason: Nausea And Vomiting Last Admin: 10/30/21 07:51 Dose: 12.5 mg Documented by: Senna (Sennosides 1 Tablet) 2 tab PO HS [facility] Last Admin: 10/29/21 20:03 Dose: Not Given Documented by: Sodium Chloride (0.9 % Sodium Chloride 10 Ml Syringe) 10 ml IV Q8 [facility] Last Admin: 10/30/21 04:57 Dose: Not Given Documented by: Thiamine HCl (Thiamine 100 Mg Tablet) 100 mg PO DAILY [facility] Zolpidem Tartrate (Zolpidem 5 Mg Tablet) 5 mg PO HSP PRN PRN Reason: Insomnia A/P Narrative Plan of Treatment: Acute alcohol withdrawal Patient has history of significant alcoholism Patient has been in the process of going to rehab voluntarily CIWA protocol initiated with a lorazepam 1 mg every 6 hourly and every 4 hours as needed Plan Patient was moved to the PCU for close monitoring as her CIWA score more than 25 Needing 12 mg of lorazepam Continue needing intermittent Phenergan and Zofran Persistent nausea vomiting 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 or withdrawal Start the patient on Reglan Zofran as needed Ordered a lipase level Alcoholic liver disease Patient CT scan showing no features of early liver cirrhosis Explained to the patient Needs to follow-up with gastroenterology outpatient Lactic acidosis probably due to liver disease Hypokalemia Hypomagnesemia Probably due to poor nutrition and nausea vomiting next Ordered replacement IV DVT prophylaxis-subcu Lovenox CODE STATUS-full code Time Spent With Patient Time: Total time spent is greater than 50% in coordination of care (as documented) at patient's floor/unit and/or counseling patient: QUALITY VTE Deep Vein Thrombosis/Pulmonary Embolism Present on Admission: No
[2021-10-30] MEDS: SERTRALINE 50 MG TABLET PO SCH (14:07)
[2021-10-30] MEDS: KETOROLAC 30 MG/ML VIAL IV SCH ×3 (14:25→23:35)
[2021-10-30] MEDS: NICOTINE 21 MG PATCH TOPICAL SCH (14:56)
[2021-10-30] MEDS: SENNOSIDES 1 TABLET PO SCH (19:43)
[2021-10-31] MEDS: PROMETHAZINE 25 MG/ML VIAL IV PRN ×2 (01:15→06:39)
[2021-10-31] MEDS: LORazepam 2 MG/ML VIAL IV PRN ×5 (01:46→06:58)
[2021-10-31] MEDS: KETOROLAC 30 MG/ML VIAL IV SCH (05:19)
[2021-10-31] MEDS: 0.9 % SODIUM CHLORIDE 10 ML SYRINGE IV SCH ×4 (05:21→20:23)
[2021-10-31 06:25] LABS: Basophils # (Auto) 0.08 K/mcL (0.00-0.30); Basophils % (Auto) 1.3 % (0.0-2.0); Eosinophils # (Auto) 0.17 K/mcL (0.00-0.70); Eosinophils % (Auto) 2.8 % (0.0-7.0); Hematocrit 34.7 % (34.1-44.9); Hemoglobin 11.6 g/dL (11.2-15.7); Lymphocytes # (Auto) 2.07 K/mcL (1.50-4.80); Lymphocytes % (Auto) 34.6 % (15.5-49.0); Mean Cell Volume 88.7 fL (80.0-100.0); Mean Corpuscular HGB Conc 33.4 g/dL (31.0-36.0); Mean Platelet Volume 11.5 fL (7.4-10.4); Monocytes # (Auto) 0.38 K/mcL (0.10-0.90); Monocytes % (Auto) 6.3 % (1.0-12.0); Platelet Count 119 K/mcL (140-440); RBC 3.91 M/mcL (3.59-5.38); Red Cell Distribution Width 13.7 % (11.5-14.5)
[2021-10-31 06:48] LABS: ALT/SGPT 45 U/L (<40); AST/SGOT 83 U/L (<32); Albumin/Globulin Ratio 2.1 (1.0-2.3); Alkaline Phosphatase 78 U/L (39-117); Bilirubin,Total 0.9 mg/dL (0.1-1.0); Blood Urea Nitrogen < 2 mg/dL (6-20); Calcium 8.7 mg/dL (8.6-10.4); Carbon Dioxide 23 mmol/L (22-30); Chloride 102 mmol/L (96-108); Globulin 1.9 gm/dL (2.2-3.7); Glomerular Filtration Rate 127; Glucose 102 mg/dL (70-105)
[2021-10-31] MEDS ORDERED: QUEtiapine 25 MG TABLET PO STA (06:50)
[2021-10-31] MEDS: OLANZapine 10 MG VIAL IM SCH ×2 (07:22→07:30)
[2021-10-31] MEDS ORDERED: MIDAZOLAM 2 MG/2 ML VIAL IM ONE (07:47)
[2021-10-31] MEDS ORDERED: DIAZEPAM 10 MG/2 ML SYRINGE IM ONE ×2 (07:47→08:50)
[2021-10-31] MEDS ORDERED: DIAZEPAM 10 MG/2 ML SYRINGE ONE ×4 (07:47→09:00)
[2021-10-31] MEDS: 0.9 % SODIUM CHLORIDE 250 ML IV SCH ×2 (08:00→21:16)
[2021-10-31] MEDS ORDERED: DEXMEDETOMIDINE 400 MCG in PREMIX 1 BAG IV SCH (08:00)
[2021-10-31] MEDS ORDERED: DEXMEDETOMIDINE 100 ML IV ONE (08:06)
[2021-10-31] MEDS ORDERED: POTASSIUM CHLORIDE 20 MEQ in DEXTROSE 5% IN WATER 250 ML IV SCH (08:15)
[2021-10-31] MEDS ORDERED: DIAZEPAM 10 MG/2 ML SYRINGE IV SCH (08:15)
[2021-10-31] MEDS ORDERED: MIDAZOLAM 2 MG/2 ML VIAL IV ONE (08:27)
[2021-10-31] MEDS ORDERED: DIAZEPAM 10 MG/2 ML SYRINGE IV ONE (08:27)
[2021-10-31] MEDS ORDERED: MIDAZOLAM 2 MG/2 ML VIAL IV SCH (08:45)
[2021-10-31] MEDS ORDERED: PHENobarbital SOD 130 MG/ML VIAL IM SCH (08:45)
[2021-10-31] MEDS ORDERED: MIDAZOLAM 5 MG/5 ML VIAL IM ONE (08:50)
[2021-10-31] MEDS ORDERED: LORazepam 2 MG/ML VIAL IM ONE (09:14)
[2021-10-31] MEDS ORDERED: LORazepam 2 MG/ML VIAL ONE (09:14)
[2021-10-31] MEDS ORDERED: ROCURONIUM 10 MG/ML ML IV ONE (09:25)
[2021-10-31] MEDS ORDERED: PROPOFOL 200 MG/20 ML VIAL IV ONE (09:25)
[2021-10-31] MEDS ORDERED: MIDAZOLAM 5 MG/5 ML VIAL ONE (09:25)
[2021-10-31] MEDS ORDERED: PROPOFOL 100 ML IV ONE (09:44)
[2021-10-31] MEDS ORDERED: PROPOFOL 1,000 MG in PREMIX 1 BAG IV SCH ×2 (09:45→12:33)
--- NOTE | 2021-10-31 09:49 | Procedure Note ---
Procedures - Intubation Time out performed: Yes Date of Procedure: 10/31/21 Sedative: other (5 mg Versed;200mg Propofol) Paralytic: Rocuronium (50mg) ETT: ETCO2, BBS Assist device used: glide Vocal Cord View: 1 ET tube size: 7 ET tube uncuffed: Yes Tube secured depth (cm): 22 Tube secured location: lips Tube placement confirmation: visualized tube passing through cords, equal breath sounds bilaterally, no breath sounds over epigastrium, confirmation by capnometry # of Attempts: 1 Patient tolerated procedure: no complications Intubation complications: none
--- NOTE | 2021-10-31 10:09 | Restraint Note ---
Restraints (Face to Face) Date/Time Section Added October 31, 2021 at 1007 Immediate Situation: Patient was physically self harming and dangerous to herself and to the others caring for her Reaction to Intervention (restraints): Physical restraints bilateral arms and bilateral lower extremities Chemical restraints Medical/Behavioral Condition: Severe alcohol withdrawal and psychosis with delirium tremens Need to continue or terminate restraint: This needs to be continued overnight we will reassess next 24-hour
--- NOTE | 2021-10-31 10:21 | XRay Report ---
CLINICAL INFORMATION: ET and OG tube placement COMPARISON: None. TECHNIQUE: PA and Lateral views FINDINGS: The heart size, mediastinum and pulmonary vessels are unremarkable. ETT tip is 5 cm above the amanda. OG tube overlies the gastric body. The lungs are clear. There are no effusions. The bones and soft tissues are within normal limits. IMPRESSION: Normal chest. Interpreted and Authenticated by: Amadeo Shell 10/31/21
[2021-10-31] MEDS: MIDAZOLAM HCL 50 MG in 0.9 % SODIUM CHLORIDE 90 ML IV SCH ×2 (10:30→21:15)
[2021-10-31] MEDS ORDERED: fentaNYL 100 MCG/2 ML VIAL IV PRN (10:36)
[2021-10-31] MEDS: DEXTROSE 5%-1/2NS 1,000 ML IV SCH ×2 (11:13→23:30)
--- NOTE | 2021-10-31 11:36 | Internal Med Progress Note ---
SUBJECTIVE Subjective Patient information: Note initiated : 10/31/21 at 11:34 am Service Date, if different from initiated Date: [] Patient: Norah Luevano 31 y/o F admitted on 10/29/21 for N/V. Chief Complaint: [] Interval history: 31-year-old female with a history of alcoholic liver disease and recent episode of alcohol withdrawal and pyelonephritis was brought to the ER because of persistent abdominal pain nausea vomiting for last 3 days patient had multiple episodes of nonbilious emesis history of significant alcohol intake 5 drinks per day and last drink was 3 days ago patient was having anxiety and tremors. Initial evaluation in the ED showing significant dehydration hypokalemia lactic acidosis and alcohol withdrawal. No evidence of any infection 10/30 Patient continued to be hypokalemic and hypomagnesemic and ordered replacement She is having severe withdrawal with a CIWA score 25 and patient was moved to the progressive care unit Patient's abdominal pain feeling better Ordered and add on lipase 10/31 Since last night patient agitation has been increasing started having hallucinations She was very agitated this morning around 6:00 needing about 22 mg of lorazepam, multiple dose of Zyprexa, diazepam 10 mg, Versed 2 mg intranasal, phenobarbital 120 IM She continues to be agitated 6 people needed to hold her down. She was physically and verbally abusive and harming herself and harming others. After multiple discussion with the patient's mother and I also have the ED physician evaluate her. We decided to endotracheally intubate and mechanically ventilate the patient for her safety and airway safety She was underwent rapid sequential intubation by [employer]. Post intubation she was started on propofol at max dose and started Versed and fentanyl for analgesia Follow-up chest x-ray showing ET tube 5 cm above the amanda and we will continue titrating her ventilator per ABG We also found some powder in her trazodone bottle and repeat her urine drug screen Review of systems Unable to obtain Physical exam Very agitated and combative, hold down by 6 people Eyes: Mild icterus Neck: full ROM Respiratory: no respiratory distress. Cardiovascular: Sinus tachycardia GI/Abdominal: soft, nontender, no guarding. Extremities: full range of motion, nontender. Neurological: No focal deficit Psychiatric: Having hallucination delusions and combativeness Skin: Multiple bruises Constitutional Vitals: Vital Signs Temp Pulse Resp BP Pulse Ox 97.3 F 77 23 H 152/93 100 10/31/21 04:01 10/31/21 11:24 10/31/21 11:24 10/31/21 11:16 10/31/21 11:24 Period Temp Pulse Resp BP Sys/Erickson Pulse Ox Last 24 Hr 97.3 F-98.4 F 55-133 10-39 59-170/43-158 81-100 Intake and Output 10/30/21 10/31/21 10/31/21 21:59 05:59 13:59 Intake Total 2529.2 600 1034 Output Total 2176 1400 700 Balance 353.2 -800 334 Weight 57.379 kg Intake & Output: Intake & Output 10/30/21 10/31/21 10/31/21 21:59 05:59 13:59 Intake Total 2529.2 600 1034 Output Total 2176 1400 700 Balance 353.2 -800 334 Weight 57.379 kg Intake: IV 2529.2 1034 Dextrose 5%-1/2Ns IV Solution 1 468 1000 ,000 ml @ 100 mls/hr IV .Q10H [facility] Rx#:[id number] Versed 50 mg In Sodium Chloride 4 0.9% 90 ml @ 1 MG/HR 2 mls/hr IV Q24H [facility] Rx#:[id number] Potassium Chloride 80 Meq In 1040 Dextrose 5% in Water 1,000 ml @ 130 mls/hr IV ONCE ONE Rx#: [id number] Diprivan 1,000 mg In Premix 1 30 Bag @ 5 MCG/KG/MIN 1.721 mls/hr IV .Q24H [facility] Rx#:[id number] Vitamin B1 100 mg Infuvite 1021.2 Adult 10 ml Folic Acid 1 mg Potassium Chloride 20 Meq In Sodium Chloride 0.9% 1,000 ml @ 100 mls/hr IV .[id number] [facility] Rx# :[id number] Oral 600 Output: Void Amount 2175 1400 700 # of times incontinent of urine 1 Other: Meal Lunch Percent of Meal Consumed 0% Urine Appearance Clear Clear Urine Color Bright Yellow Bright Yellow Urine Odor Normal Normal OBJ DATA Labs CBC & Chem 7: 10/31/21 05:04 10/31/21 05:04 Labs: Abnormal Lab Results 10/31/21 10/31/21 10/31/21 10:19 05:04 05:04 Hgb Hct Plt Count 119 L MPV 11.5 H POC pCO2 47.7 H POC pO2 386 H POC HCO3 31.4 H POC Total CO2 33.0 H POC ABG Base Excess 7.0 H VBG Lactic Acid Hgb O2 Saturation 100.0 H Potassium Anion Gap BUN < 2 L Creatinine 0.5 L Calcium Magnesium Total Bilirubin AST 83 H ALT 45 H Total Protein Globulin 1.9 L Albumin/Globulin Ratio 10/30/21 10/30/21 10/29/21 05:07 05:07 14:23 Hgb 11.0 L Hct 32.4 L Plt Count 127 L MPV 11.8 H POC pCO2 POC pO2 POC HCO3 POC Total CO2 POC ABG Base Excess VBG Lactic Acid 3.9 H* Hgb O2 Saturation Potassium 3.0 L Anion Gap BUN 5 L Creatinine Calcium 7.9 L Magnesium 1.2 L Total Bilirubin 1.5 H AST 181 H ALT Total Protein 5.2 L Globulin 1.6 L Albumin/Globulin Ratio 10/29/21 10/29/21 14:20 14:20 Hgb Hct Plt Count MPV 11.4 H POC pCO2 POC pO2 POC HCO3 POC Total CO2 POC ABG Base Excess VBG Lactic Acid Hgb O2 Saturation Potassium 3.0 L Anion Gap 18.0 H BUN Creatinine 0.5 L Calcium 8.5 L Magnesium Total Bilirubin AST ALT Total Protein Globulin 1.6 L Albumin/Globulin Ratio 2.8 H Meds: Medications Acetaminophen (Acetaminophen 325 Mg Tablet) 650 mg PO Q6HP PRN; Protocol PRN Reason: Per Pain Protocol/Fever > 101 Last Admin: 10/30/21 13:24 Dose: 650 mg Documented by: Al Hydrox/Mg Hydrox/Simethicone (Mag Hydrox/Al Hydrox/Simeth 30 Ml Oral.Susp) 30 ml PO Q6HP PRN PRN Reason: Dyspepsia Albuterol Sulfate (Albuterol Sulfate 2.5 Mg/3 Ml Nebulizer) 2.5 mg NEB Q2HP PRN PRN Reason: Shortness Of Breath Calcium Carbonate/Glycine (Calcium Carbonate 500 Mg Tab.Chew) 1,000 mg CHEWED Q4HP PRN PRN Reason: Dyspepsia Chlorhexidine Gluconate (Chlorhexidine Gluconate 1 Ml Oral.Sisi) 15 ml SWABMOUTH BID [facility] Docusate Sodium (Docusate Sodium 100 Mg Capsule) 100 mg PO BID [facility] Last Admin: 10/30/21 19:43 Dose: Not Given Documented by: Enoxaparin Sodium (Enoxaparin 40 Mg/0.4 Ml Syringe) 40 mg SQ DAILY [facility] Last Admin: 10/30/21 10:22 Dose: 40 mg Documented by: Famotidine (Famotidine/Pf 20 Mg/2 Ml Vial) 20 mg IV Q12 [facility] Last Admin: 10/30/21 19:55 Dose: 20 mg Documented by: Fentanyl (Fentanyl 100 Mcg/2 Ml Vial) 50 mcg IV Q2HP PRN; Protocol PRN Reason: Agitation Last Admin: 10/31/21 10:52 Dose: 50 mcg Documented by: Folic Acid (Folic Acid 1 Mg Tablet) 1 mg PO DAILY [facility] Hydralazine HCl (Hydralazine 20 Mg/Ml Vial) 10 mg IV Q4-6HP PRN PRN Reason: Hypertension Dextrose/Sodium Chloride (Dextrose 5%-1/2ns Iv Solution) 1,000 mls @ 100 mls/hr IV .Q10H [facility] Last Admin: 10/31/21 11:13 Dose: 100 mls/hr Documented by: Propofol 1,000 mg/ Premix 100 mls @ 1.721 mls/hr IV .Q24H [facility]; Protocol Last Titration: 10/31/21 11:00 Dose: 290.47 mcg/kg/min, 100 mls/hr Documented by: Midazolam HCl 50 mg/ Sodium (Chloride) 100 mls @ 2 mls/hr IV Q24H [facility]; Protocol Last Titration: 10/31/21 11:05 Dose: 8 mg/hr, 16 mls/hr Documented by: Fentanyl 2,500 mcg/ Sodium (Chloride) 250 mls @ 2.5 mls/hr IV Q24H [facility]; Pro tocol Iron Carb/Multivit/[employer]/Folic Acid (Multivit,Ther Iron,Ca,Fa & Min 1 Tablet) 1 tab PO DAILY [facility] Last Admin: 10/30/21 10:44 Dose: Not Given Documented by: Lorazepam (Lorazepam 2 Mg/Ml Vial) 1 mg IV Q2-4HP PRN PRN Reason: ANXIETY/SEDATION Last Admin: 10/30/21 23:35 Dose: 1 mg Documented by: Lorazepam (Lorazepam 2 Mg/Ml Vial) 0 mg IV Q4HP PRN; Protocol PRN Reason: Alcohol Withdrawal/Assess CIWA Last Admin: 10/31/21 06:58 Dose: 3 mg Documented by: Magnesium Hydroxide (Magnesium Hydroxide 30 Ml Oral.Susp) 30 ml PO DAILYP PRN PRN Reason: Constipation Magnesium Oxide (Magnesium Oxide 400 Mg Tablet) 800 mg PO DAILY [facility] Last Admin: 10/30/21 10:47 Dose: 800 mg Documented by: Melatonin (Melatonin 3 Mg Tablet) 3 mg PO HSP PRN PRN Reason: Insomnia Last Admin: 10/30/21 19:55 Dose: 3 mg Documented by: Midazolam HCl (Midazolam 5 Mg/5 Ml Vial) 5 mg IM ONCE ONE Stop: 10/31/21 08:51 Nicotine (Nicotine 21 Mg Patch) 21 mg TOPICAL DAILY@1000 [facility] Last Admin: 10/30/21 14:56 Dose: 21 mg Documented by: Ondansetron HCl (Ondansetron 4 Mg/2 Ml Vial) 4 mg IV Q6HP PRN PRN Reason: Nausea And Vomiting Last Admin: 10/30/21 14:41 Dose: 4 mg Documented by: Ondansetron HCl (Ondansetron 4 Mg Odt Tablet) 4 mg SL Q6HP PRN PRN Reason: Nausea And Vomiting Promethazine HCl (Promethazine 25 Mg/Ml Vial) 12.5 mg IV Q6HP PRN PRN Reason: Nausea And Vomiting Last Admin: 10/31/21 06:39 Dose: 12.5 mg Documented by: Senna (Sennosides 1 Tablet) 2 tab PO HS [facility] Last Admin: 10/30/21 19:43 Dose: Not Given Documented by: Sertraline HCl (Sertraline 50 Mg Tablet) 25 mg PO DAILY [facility] Last Admin: 10/30/21 14:07 Dose: 25 mg Documented by: Sodium Chloride (0.9 % Sodium Chloride 10 Ml Syringe) 10 ml IV Q8 [facility] Last Admin: 10/31/21 05:21 Dose: Not Given Documented by: Thiamine HCl (Thiamine 100 Mg Tablet) 100 mg PO DAILY [facility] A/P Narrative Plan of Treatment: Delirium tremens Endotracheally intubated and mechanically ventilated 10/31/2021 Patient was severely agitated this morning and requiring 22 mg of lorazepam and 3 hours and multiple doses of Zyprexa, diazepam IM, Versed phenobarbital. She was also started on Precedex drip without any improvement Patient was threatening to harm others and she was at risk for self-harm with agitation and risk of seizure. I had the ED physician evaluate her as well and tried nasal Versed and IM phenobarbital. For her own safety and airway safety-discussed with the patient's mom in the ICU and decided to endotracheal intubation and mechanical ventilation Plan is to keep her on propofol, Versed for sedation and fentanyl for analgesia We also found some powder in her trazodone bottle which she was having in the room-repeated urine drug screen Will follow-up ABG Titrate the propofol and Versed Monitor vital signs closely No other etiology other than alcohol withdrawal identified Persistent nausea vomiting-improved Is mechanically ventilated and sedated Alcoholic liver disease Patient CT scan showing no features of early liver cirrhosis Explained to the patient and her mom who works here at the hospital Needs to follow-up with gastroenterology outpatient Lactic acidosis probably due to liver disease Hypokalemia Hypomagnesemia Hypomagnesemia improved Potassium replacement ordered DVT prophylaxis-subcu Lovenox CODE STATUS-full code CPT code [id number] Total critical care time spent 120 min Time Spent With Patient Time: Total time spent is greater than 50% in coordination of care (as documented) at patient's floor/unit and/or counseling patient: Critical Care Time: Yes Total Critical Care Time: 120 QUALITY VTE Deep Vein Thrombosis/Pulmonary Embolism Present on Admission: No
[2021-10-31] MEDS: DIAZEPAM 10 MG/2 ML SYRINGE IV ONE ×2 (11:43→12:16)
[2021-10-31] MEDS: fentaNYL 2,500 MCG in 0.9 % SODIUM CHLORIDE 200 ML IV SCH (11:46)
[2021-10-31 11:48] LABS: Amphetamine Screen,Urine None detected; Barbiturate Screen,Urine Suspect positive; Benzodiazepines Screen,Urine Suspect positive; Cannabinoid Screen,Urine Suspect Positive; Cocaine Screen,Urine None detected; Opiate Screen,Urine None detected; Oxycodone, Urine Screen None detected; Phencyclidine Screen,Urine None detected
[2021-10-31] MEDS: DOCUSATE SODIUM 100 MG CAPSULE PO SCH ×2 (12:22→20:21)
[2021-10-31] MEDS: MULTIVIT,THER IRON,CA,FA & MIN 1 TABLET PO SCH (12:24)
[2021-10-31] MEDS: ENOXAPARIN 40 MG/0.4 ML SYRINGE SQ SCH (12:25)
[2021-10-31] MEDS: FOLIC ACID 1 MG TABLET PO SCH (12:25)
[2021-10-31] MEDS: MAGNESIUM OXIDE 400 MG TABLET PO SCH (12:25)
[2021-10-31] MEDS: THIAMINE 100 MG TABLET PO SCH (12:29)
[2021-10-31] MEDS: SERTRALINE 50 MG TABLET PO SCH (12:29)
[2021-10-31] MEDS: PROPOFOL 1,000 MG in PREMIX 1 BAG IV SCH ×3 (12:45→21:13)
[2021-10-31] MEDS: NICOTINE 21 MG PATCH TOPICAL SCH (13:19)
[2021-10-31] MEDS ORDERED: 0.9 % SODIUM CHLORIDE 10 ML SYRINGE IV PRN (13:49)
[2021-10-31] MEDS: FAMOTIDINE/PF 20 MG/2 ML VIAL IV SCH ×2 (14:01→20:21)
[2021-10-31] MEDS: THIAMINE 100 MG in 0.9 % SODIUM CHLORIDE 50 ML IV SCH (14:04)
[2021-10-31] MEDS: CHLORHEXIDINE GLUCONATE 1 ML ORAL.SOL SWABMOUTH SCH ×2 (16:11→20:22)
[2021-10-31] MEDS: PANTOPRAZOLE 40 MG VIAL IV SCH (17:23)
[2021-10-31] MEDS: SENNOSIDES 1 TABLET PO SCH (20:23)
[2021-11-01] MEDS: PROPOFOL 1,000 MG in PREMIX 1 BAG IV SCH ×6 (01:32→21:28)
[2021-11-01 06:53] LABS: Basophils # (Auto) 0.07 K/mcL (0.00-0.30); Basophils % (Auto) 0.8 % (0.0-2.0); Eosinophils # (Auto) 0.38 K/mcL (0.00-0.70); Eosinophils % (Auto) 4.3 % (0.0-7.0); Hematocrit 38.1 % (34.1-44.9); Hemoglobin 12.3 g/dL (11.2-15.7); Lymphocytes # (Auto) 1.91 K/mcL (1.50-4.80); Lymphocytes % (Auto) 21.6 % (15.5-49.0); Mean Cell Volume 91.1 fL (80.0-100.0); Mean Corpuscular HGB Conc 32.3 g/dL (31.0-36.0); Mean Platelet Volume 12.1 fL (7.4-10.4); Monocytes # (Auto) 0.49 K/mcL (0.10-0.90); Monocytes % (Auto) 5.5 % (1.0-12.0); Neutrophils % (Auto) 67.8 % (38.0-78.0); Platelet Count 116 K/mcL (140-440); RBC 4.18 M/mcL (3.59-5.38); Red Cell Distribution Width 14.1 % (11.5-14.5); WBC 8.9 K/mcL (4.5-11.0)
[2021-11-01] MEDS: 0.9 % SODIUM CHLORIDE 10 ML SYRINGE IV SCH ×5 (07:02→21:37)
[2021-11-01] MEDS: PANTOPRAZOLE 40 MG VIAL IV SCH ×2 (07:09→18:03)
[2021-11-01 07:30] LABS: ALT/SGPT 36 U/L (<40); AST/SGOT 53 U/L (<32); Albumin 3.8 gm/dL (3.2-5.2); Alkaline Phosphatase 73 U/L (39-117); Bilirubin,Total 0.6 mg/dL (0.1-1.0); Blood Urea Nitrogen < 2 mg/dL (6-20); Calcium 8.8 mg/dL (8.6-10.4); Carbon Dioxide 24 mmol/L (22-30); Chloride 102 mmol/L (96-108); Globulin 1.9 gm/dL (2.2-3.7); Glomerular Filtration Rate 127; Glucose 91 mg/dL (70-105)
--- NOTE | 2021-11-01 07:36 | XRay Report ---
CLINICAL INFORMATION: Hypoxia COMPARISON: None. TECHNIQUE: PA and Lateral views FINDINGS: Endotracheal and NG tube in stable satisfactory position. The heart size, mediastinum and pulmonary vessels are unremarkable. The lungs are clear. There are no effusions. The bones and soft tissues are within normal limits. IMPRESSION: Normal chest. Interpreted and Authenticated by: Amadeo Shell 11/01/21
[2021-11-01] MEDS: DOCUSATE SODIUM 100 MG CAPSULE PO SCH ×2 (07:40→20:52)
[2021-11-01] MEDS ORDERED: POTASSIUM CHLORIDE 60 MEQ in DEXTROSE 5% IN WATER 500 ML IV ONE (08:08)
[2021-11-01] MEDS: DEXTROSE 5%-1/2NS 1,000 ML IV SCH ×3 (08:10→19:23)
[2021-11-01] MEDS: FOLIC ACID 1 MG TABLET PO SCH (08:10)
[2021-11-01] MEDS: MAGNESIUM OXIDE 400 MG TABLET PO SCH (08:10)
[2021-11-01] MEDS: THIAMINE 100 MG TABLET PO SCH (08:11)
[2021-11-01] MEDS: SERTRALINE 50 MG TABLET PO SCH (08:11)
[2021-11-01] MEDS: MULTIVIT,THER IRON,CA,FA & MIN 1 TABLET PO SCH (08:11)
[2021-11-01] MEDS: ENOXAPARIN 40 MG/0.4 ML SYRINGE SQ SCH (08:30)
[2021-11-01] MEDS: FAMOTIDINE/PF 20 MG/2 ML VIAL IV SCH ×2 (08:30→21:11)
[2021-11-01] MEDS: CHLORHEXIDINE GLUCONATE 1 ML ORAL.SOL SWABMOUTH SCH ×2 (08:30→21:10)
[2021-11-01] MEDS ORDERED: POTASSIUM CHLORIDE 40 MEQ in DEXTROSE 5% IN WATER 500 ML IV ONE (09:00)
[2021-11-01] MEDS: 0.9 % SODIUM CHLORIDE 250 ML IV SCH ×2 (10:30→21:47)
[2021-11-01] MEDS: MIDAZOLAM HCL 50 MG in 0.9 % SODIUM CHLORIDE 90 ML IV SCH ×2 (11:18→14:29)
--- NOTE | 2021-11-01 11:33 | Internal Med Progress Note ---
SUBJECTIVE Subjective Patient information: Note initiated : 11/01/21 at 11:31 am Service Date, if different from initiated Date: [] Patient: Norah Luevano 31 y/o F admitted on 10/29/21 for N/V. Chief Complaint: [] Interval history: 31-year-old female with a history of alcoholic liver disease and recent episode of alcohol withdrawal and pyelonephritis was brought to the ER because of persistent abdominal pain nausea vomiting for last 3 days patient had multiple episodes of nonbilious emesis history of significant alcohol intake 5 drinks per day and last drink was 3 days ago patient was having anxiety and tremors. Initial evaluation in the ED showing significant dehydration hypokalemia lactic acidosis and alcohol withdrawal. No evidence of any infection 10/30 Patient continued to be hypokalemic and hypomagnesemic and ordered replacement She is having severe withdrawal with a CIWA score 25 and patient was moved to the progressive care unit Patient's abdominal pain feeling better Ordered and add on lipase 10/31 Since last night patient agitation has been increasing started having hallucinations She was very agitated this morning around 6:00 needing about 22 mg of lorazepam, multiple dose of Zyprexa, diazepam 10 mg, Versed 2 mg intranasal, phenobarbital 120 IM She continues to be agitated 6 people needed to hold her down. She was physically and verbally abusive and harming herself and harming others. After multiple discussion with the patient's mother and I also have the ED physician evaluate her. We decided to endotracheally intubate and mechanically ventilate the patient for her safety and airway safety She was underwent rapid sequential intubation by APPLIANCE TECHNICIAN. Post intubation she was started on propofol at max dose and started Versed and fentanyl for analgesia Follow-up chest x-ray showing ET tube 5 cm above the amanda and we will continue titrating her ventilator per ABG We also found some powder in her trazodone bottle and repeat her urine drug screen 11/01 Patient is pharmacologically sedated and mechanically ventilated this morning her oxygenation is good on 50% FiO2 Plan is to try to wean off the sedation and extubation She is off of Versed we will try to wean off the propofol and keep the fentanyl for analgesia Review of systems Unable to obtain Physical exam Mechanically ventilated pharmacologically sedated with a RASS score of 0 to -1 Pupils are reactive Neck: full ROM Respiratory: Good cough reflex moving extremities bilaterally equal Cardiovascular: Sinus tachycardia GI/Abdominal: soft, nontender, no guarding. Extremities: No deficits identified Neurological: No focal deficit identified Psychiatric: Unable to assess Skin: Multiple bruises Constitutional Vitals: Vital Signs Temp Pulse Resp BP Pulse Ox 99.9 F H 83 24 H 140/92 92 11/01/21 10:01 11/01/21 10:01 11/01/21 10:25 11/01/21 10:01 11/01/21 10:40 Period Temp Pulse Resp BP Sys/Erickson Pulse Ox Last 24 Hr 97.3 F-99.9 F 55-97 12- 109-160/77-107 92-100 Intake and Output 10/31/21 11/01/21 11/01/21 21:59 05:59 13:59 Intake Total 6453 374 9189 Output Total 358 1405 478 Balance 1211 -1099 921 Weight 56.926 kg Intake & Output: Intake & Output 10/31/21 11/01/21 11/01/21 21:59 05:59 13:59 Intake Total 7480 019 9375 Output Total 358 1405 478 Balance 1211 -1099 921 Weight 56.926 kg Intake: IV 6520 789 4464 Sodium Chloride 0.9% 250 ml @ 250 250 20 mls/hr IV .[id number] [facility] Rx#: [id number] Dextrose 5%-1/2Ns IV Solution 1 1000 980 ,000 ml @ 100 mls/hr IV .Q10H [facility] Rx#:[id number] Versed 50 mg In Sodium Chloride 68 76 12 0.9% 90 ml @ 1 MG/HR 2 mls/hr IV Q24H [facility] Rx#:[id number] Diprivan 1,000 mg In Premix 1 200 191 129 Bag @ 50 MCG/KG/MIN 17.214 mls/ hr IV .Q5H49M [facility] Rx#:[id number] Vitamin B1 100 mg In Sodium 51 Chloride 0.9% 50 ml @ 50 mls/hr IV 1300 [facility] Rx#:[id number] fentaNYL 2,500 MCG In Sodium 39 28 Chloride 0.9% 200 ml @ 25 MCG/ HR 2.5 mls/hr IV Q24H [facility] Rx#: [id number] Oral 0 Tube Feeding 0 0 Output: Gastric Drainage 100 100 Oral NG/OG 100 100 Urine Catheter Amount 253 1305 478 Void Amount 5 Other: Urine Appearance Clear Clear Clear Uretheral (Ugarte) Clear Clear Urine Color Bright Yellow Bright Yellow Bright Yellow Uretheral (Ugarte) Bright Yellow Bright Yellow Urine Odor Normal OBJ DATA Labs CBC & Chem 7: 11/01/21 05:16 11/01/21 05:16 Labs: Abnormal Lab Results 11/01/21 11/01/21 10/31/21 05:16 05:16 10:29 Hgb Hct Plt Count 116 L MPV 12.1 H POC pCO2 POC pO2 POC HCO3 POC Total CO2 POC ABG Base Excess VBG Lactic Acid Hgb O2 Saturation Potassium 2.8 L* Anion Gap BUN < 2 L Creatinine 0.5 L Calcium Magnesium Total Bilirubin AST 53 H ALT Total Protein 5.7 L Globulin 1.9 L Albumin/Globulin Ratio Ur Barbiturates Screen Suspect positive A U Benzodiazepines Scrn Suspect positive A U Marijuana (THC) Screen Suspect positive A 10/31/21 10/31/21 10/31/21 10:19 05:04 05:04 Hgb Hct Plt Count 119 L MPV 11.5 H POC pCO2 47.7 H POC pO2 386 H POC HCO3 31.4 H POC Total CO2 33.0 H POC ABG Base Excess 7.0 H VBG Lactic Acid Hgb O2 Saturation 100.0 H Potassium Anion Gap BUN < 2 L Creatinine 0.5 L Calcium Magnesium Total Bilirubin AST 83 H ALT 45 H Total Protein Globulin 1.9 L Albumin/Globulin Ratio Ur Barbiturates Screen U Benzodiazepines Scrn U Marijuana (THC) Screen 10/30/21 10/30/21 10/29/21 05:07 05:07 14:23 Hgb 11.0 L Hct 32.4 L Plt Count 127 L MPV 11.8 H POC pCO2 POC pO2 POC HCO3 POC Total CO2 POC ABG Base Excess VBG Lactic Acid 3.9 H* Hgb O2 Saturation Potassium 3.0 L Anion Gap BUN 5 L Creatinine Calcium 7.9 L Magnesium 1.2 L Total Bilirubin 1.5 H AST 181 H ALT Total Protein 5.2 L Globulin 1.6 L Albumin/Globulin Ratio Ur Barbiturates Screen U Benzodiazepines Scrn U Marijuana (THC) Screen 10/29/21 10/29/21 14:20 14:20 Hgb Hct Plt Count MPV 11.4 H POC pCO2 POC pO2 POC HCO3 POC Total CO2 POC ABG Base Excess VBG Lactic Acid Hgb O2 Saturation Potassium 3.0 L Anion Gap 18.0 H BUN Creatinine 0.5 L Calcium 8.5 L Magnesium Total Bilirubin AST ALT Total Protein Globulin 1.6 L Albumin/Globulin Ratio 2.8 H Ur Barbiturates Screen U Benzodiazepines Scrn U Marijuana (THC) Screen Meds: Medications Acetaminophen (Acetaminophen 325 Mg Tablet) 650 mg PO Q6HP PRN; Protocol PRN Reason: Per Pain Protocol/Fever > 101 Last Admin: 10/30/21 13:24 Dose: 650 mg Documented by: Al Hydrox/Mg Hydrox/Simethicone (Mag Hydrox/Al Hydrox/Simeth 30 Ml Oral.Susp) 30 ml PO Q6HP PRN PRN Reason: Dyspepsia Albuterol Sulfate (Albuterol Sulfate 2.5 Mg/3 Ml Nebulizer) 2.5 mg NEB Q2HP PRN PRN Reason: Shortness Of Breath Calcium Carbonate/Glycine (Calcium Carbonate 500 Mg Tab.Chew) 1,000 mg CHEWED Q4HP PRN PRN Reason: Dyspepsia Chlorhexidine Gluconate (Chlorhexidine Gluconate 1 Ml Oral.Sisi) 15 ml SWABMOUTH BID [facility] Last Admin: 11/01/21 08:30 Dose: 15 ml Documented by: Docusate Sodium (Docusate Sodium 100 Mg Capsule) 100 mg PO BID [facility] Last Admin: 11/01/21 07:40 Dose: Not Given Documented by: Enoxaparin Sodium (Enoxaparin 40 Mg/0.4 Ml Syringe) 40 mg SQ DAILY [facility] Last Admin: 11/01/21 08:30 Dose: 40 mg Documented by: Famotidine (Famotidine/Pf 20 Mg/2 Ml Vial) 20 mg IV Q12 [facility] Last Admin: 11/01/21 08:30 Dose: 20 mg Documented by: Fentanyl (Fentanyl 100 Mcg/2 Ml Vial) 50 mcg IV Q2HP PRN; Protocol PRN Reason: Agitation Last Admin: 10/31/21 10:52 Dose: 50 mcg Documented by: Folic Acid (Folic Acid 1 Mg Tablet) 1 mg PO DAILY [facility] Last Admin: 11/01/21 08:10 Dose: Not Given Documented by: Hydralazine HCl (Hydralazine 20 Mg/Ml Vial) 10 mg IV Q4-6HP PRN PRN Reason: Hypertension Dextrose/Sodium Chloride (Dextrose 5%-1/2ns Iv Solution) 1,000 mls @ 100 mls/hr IV .Q10H [facility] Last Infusion: 11/01/21 10:18 Dose: 0 mls/hr Documented by: Midazolam HCl 50 mg/ Sodium (Chloride) 100 mls @ 2 mls/hr IV Q24H [facility]; Protocol Last Admin: 11/01/21 11:18 Dose: Not Given Documented by: Fentanyl 2,500 mcg/ Sodium (Chloride) 250 mls @ 2.5 mls/hr IV Q24H [facility]; Protocol Last Titration: 11/01/21 11:14 Dose: 40 mcg/hr, 4 mls/hr Documented by: Thiamine HCl 100 mg/ Sodium (Chloride) 51 mls @ 50 mls/hr IV 1300 [facility] Stop: 11/02/21 14:02 Last Infusion: 10/31/21 15:10 Dose: Infused Documented by: Propofol 1,000 mg/ Premix 100 mls @ 17.214 mls/hr IV .Q5H49M [facility]; Protocol Last Titration: 11/01/21 11:15 Dose: 95 mcg/kg/min, 32.706 mls/hr Documented by: Sodium Chloride (Sodium Chloride 0.9%) 250 mls @ 20 mls/hr IV .[id number] [facility] Last Admin: 11/01/21 10:30 Dose: 20 mls/hr Documented by: Potassium Chloride 40 meq/ (Dextrose) 520 mls @ 130 mls/hr IV ONCE ONE Stop: 11/01/21 12:59 Last Admin: 11/01/21 10:06 Dose: 130 mls/hr Documented by: Potassium Chloride 20 meq/ (Dextrose) 260 mls @ 130 mls/hr IV ONCE ONE Stop: 11/01/21 14:59 Iron Carb/Multivit/[place]/Folic Acid (Multivit,Ther Iron,Ca,Fa & Min 1 Tablet) 1 tab PO DAILY [facility] Last Admin: 11/01/21 08:11 Dose: Not Given Documented by: Lorazepam (Lorazepam 2 Mg/Ml Vial) 1 mg IV Q2-4HP PRN PRN Reason: ANXIETY/SEDATION Last Admin: 10/30/21 23:35 Dose: 1 mg Documented by: Lorazepam (Lorazepam 2 Mg/Ml Vial) 0 mg IV Q4HP PRN; Protocol PRN Reason: Alcohol Withdrawal/Assess CIWA Last Admin: 10/31/21 06:58 Dose: 3 mg Documented by: Magnesium Hydroxide (Magnesium Hydroxide 30 Ml Oral.Susp) 30 ml PO DAILYP PRN PRN Reason: Constipation Magnesium Oxide (Magnesium Oxide 400 Mg Tablet) 800 mg PO DAILY [facility] Last Admin: 11/01/21 08:10 Dose: Not Given Documented by: Melatonin (Melatonin 3 Mg Tablet) 3 mg PO HSP PRN PRN Reason: Insomnia Last Admin: 10/30/21 19:55 Dose: 3 mg Documented by: Nicotine (Nicotine 21 Mg Patch) 21 mg TOPICAL DAILY@1000 [facility] Last Admin: 10/31/21 13:19 Dose: 21 mg Documented by: Ondansetron HCl (Ondansetron 4 Mg/2 Ml Vial) 4 mg IV Q6HP PRN PRN Reason: Nausea And Vomiting Last Admin: 10/30/21 14:41 Dose: 4 mg Documented by: Ondansetron HCl (Ondansetron 4 Mg Odt Tablet) 4 mg SL Q6HP PRN PRN Reason: Nausea And Vomiting Pantoprazole Sodium (Pantoprazole 40 Mg Vial) 40 mg IV BIDAC [facility] Last Admin: 11/01/21 07:09 Dose: 40 mg Documented by: Promethazine HCl (Promethazine 25 Mg/Ml Vial) 12.5 mg IV Q6HP PRN PRN Reason: Nausea And Vomiting Last Admin: 10/31/21 06:39 Dose: 12.5 mg Documented by: Senna (Sennosides 1 Tablet) 2 tab PO HS [facility] Last Admin: 10/31/21 20:23 Dose: Not Given Documented by: Sertraline HCl (Sertraline 50 Mg Tablet) 25 mg PO DAILY [facility] Last Admin: 11/01/21 08:11 Dose: Not Given Documented by: Sodium Chloride (0.9 % Sodium Chloride 10 Ml Syringe) 10 ml IV Q8 [facility] Last Admin: 11/01/21 07:02 Dose: Not Given Documented by: Sodium Chloride (0.9 % Sodium Chloride 10 Ml Syringe) 10 ml IV Q12 [facility] Last Admin: 11/01/21 10:18 Dose: Not Given Documented by: Sodium Chloride (0.9 % Sodium Chloride 10 Ml Syringe) 10 ml IV UD PRN PRN Reason: FLUSH Thiamine HCl (Thiamine 100 Mg Tablet) 100 mg PO DAILY [facility] Last Admin: 06/25/22 08:11 Dose: Not Given Documented by: A/P Narrative Plan of Treatment: Delirium tremens Endotracheally intubated and mechanically ventilated 10/31/2021 Patient was severely agitated this morning and requiring 22 mg of lorazepam and 3 hours and multiple doses of Zyprexa, diazepam IM, Versed phenobarbital. She was also started on Precedex drip without any improvement Patient was threatening to harm others and she was at risk for self-harm with agitation and risk of seizure. I had the ED physician evaluate her as well and tried nasal Versed and IM phenobarbital. For her own safety and airway safety-discussed with the patient's mom in the ICU and decided to endotracheal intubation and mechanical ventilation Plan is to keep her on propofol, Versed for sedation and fentanyl for analgesia We also found some powder in her trazodone bottle which she was having in the room-repeated urine drug screen Will follow-up ABG Titrate the propofol and Versed Monitor vital signs closely No other etiology other than alcohol withdrawal identified Plan Patient remain pharmacologically sedated and mechanically ventilated this morning Plan is to try to wean off the sedation and extubation if possible Patient has good respiratory effort and good cough and good oxygenation Will need to reassess her mentation once she is off of sedation Follow-up ABG and chest x-ray as needed Persistent nausea vomiting-improved 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 Alcoholic liver disease Patient CT scan showing no features of early liver cirrhosis Explained to the patient and her mom who works here at the hospital Needs to follow-up with gastroenterology outpatient Lactic acidosis probably due to liver disease Hypokalemia Hypomagnesemia Hypomagnesemia improved Potassium replacement ordered DVT prophylaxis-subcu Lovenox CODE STATUS-full code CPT code 66514 Total critical care time spent 40 min Time Spent With Patient Time: Total time spent is greater than 50% in coordination of care (as documented) at patient's floor/unit and/or counseling patient: Critical Care Time: Yes Total Critical Care Time: 40 QUALITY VTE Deep Vein Thrombosis/Pulmonary Embolism Present on Admission: No
[2021-11-01] MEDS: fentaNYL 2,500 MCG in 0.9 % SODIUM CHLORIDE 200 ML IV SCH ×2 (11:57→14:28)
[2021-11-01] MEDS ORDERED: POTASSIUM CHLORIDE 20 MEQ in DEXTROSE 5% IN WATER 250 ML IV ONE (13:00)
[2021-11-01] MEDS: NICOTINE 21 MG PATCH TOPICAL SCH (13:05)
[2021-11-01] MEDS: PIPERACILLIN SODIUM/TAZOBACTAM 3.375 GM in DEXTROSE 5% IN WATER 50 ML IV SCH ×3 (13:11→23:44)
--- NOTE | 2021-11-01 14:26 | XRay Report ---
CLINICAL INFORMATION: Hypoxia question aspiration COMPARISON: None. TECHNIQUE: PA and Lateral views FINDINGS: Endotracheal and NG tube in stable satisfactory position. The heart size, mediastinum and pulmonary vessels are unremarkable. The lungs are clear. There are no effusions. The bones and soft tissues are within normal limits. IMPRESSION: Normal chest. Interpreted and Authenticated by: Amadeo Shell 11/01/21
[2021-11-01] MEDS: THIAMINE 100 MG in 0.9 % SODIUM CHLORIDE 50 ML IV SCH (14:57)
[2021-11-01] MEDS: SENNOSIDES 1 TABLET PO SCH (20:52)
[2021-11-01] MEDS ORDERED: ACETAMINOPHEN 650 MG/65 ML BAG IV PRN (22:05)
[2021-11-02] MEDS: PROPOFOL 1,000 MG in PREMIX 1 BAG IV SCH ×3 (01:08→12:15)
--- NOTE | 2021-11-02 03:17 | XRay Report ---
CLINICAL INFORMATION: PICC line placement COMPARISON: 11/01/2021. TECHNIQUE: PA and Lateral views FINDINGS: Endotracheal and NG tube in stable satisfactory position. Left PICC line tip overlies the SVC brachiocephalic junction. The heart size, mediastinum and pulmonary vessels are unremarkable. The lungs are clear. There are no effusions. The bones and soft tissues are within normal limits. IMPRESSION: Normal chest. Interpreted and Authenticated by: Amadeo Shell 11/02/21
[2021-11-02] MEDS: MIDAZOLAM HCL 50 MG in 0.9 % SODIUM CHLORIDE 90 ML IV SCH ×2 (04:02→12:30)
[2021-11-02] MEDS ORDERED: MIDAZOLAM HCL 50 MG/10 ML VIAL IV ONE (04:06)
[2021-11-02] MEDS: PIPERACILLIN SODIUM/TAZOBACTAM 3.375 GM in DEXTROSE 5% IN WATER 50 ML IV SCH (05:48)
[2021-11-02] MEDS: DEXTROSE 5%-1/2NS 1,000 ML IV SCH (06:24)
[2021-11-02] MEDS: PANTOPRAZOLE 40 MG VIAL IV SCH (06:41)
[2021-11-02 06:42] LABS: Basophils # (Auto) 0.05 K/mcL (0.00-0.30); Basophils % (Auto) 0.5 % (0.0-2.0); Eosinophils # (Auto) 0.38 K/mcL (0.00-0.70); Eosinophils % (Auto) 4.1 % (0.0-7.0); Hematocrit 30.5 % (34.1-44.9); Hemoglobin 9.9 g/dL (11.2-15.7); Lymphocytes % (Auto) 17.2 % (15.5-49.0); Mean Cell Volume 90.8 fL (80.0-100.0); Mean Corpuscular HGB Conc 32.5 g/dL (31.0-36.0); Mean Platelet Volume 12.3 fL (7.4-10.4); Monocytes # (Auto) 0.66 K/mcL (0.10-0.90); Monocytes % (Auto) 7.1 % (1.0-12.0); Neutrophils % (Auto) 71.1 % (38.0-78.0); Platelet Count 91 K/mcL (140-440); RBC 3.36 M/mcL (3.59-5.38); Red Cell Distribution Width 14.1 % (11.5-14.5); WBC 9.3 K/mcL (4.5-11.0)
[2021-11-02] MEDS: ENOXAPARIN 40 MG/0.4 ML SYRINGE SQ SCH (07:01)
[2021-11-02] MEDS: FAMOTIDINE/PF 20 MG/2 ML VIAL IV SCH (07:01)
[2021-11-02] MEDS: 0.9 % SODIUM CHLORIDE 10 ML SYRINGE IV SCH ×2 (07:02)
[2021-11-02] MEDS: CHLORHEXIDINE GLUCONATE 1 ML ORAL.SOL SWABMOUTH SCH (07:03)
[2021-11-02] MEDS: MULTIVIT,THER IRON,CA,FA & MIN 1 TABLET PO SCH (07:07)
[2021-11-02] MEDS: SERTRALINE 50 MG TABLET PO SCH (07:07)
[2021-11-02] MEDS: DOCUSATE SODIUM 100 MG CAPSULE PO SCH (07:07)
[2021-11-02] MEDS: THIAMINE 100 MG TABLET PO SCH (07:07)
[2021-11-02] MEDS: MAGNESIUM OXIDE 400 MG TABLET PO SCH (07:07)
[2021-11-02] MEDS: FOLIC ACID 1 MG TABLET PO SCH (07:07)
[2021-11-02 07:32] LABS: ALT/SGPT 26 U/L (<40); AST/SGOT 30 U/L (<32); Albumin 3.2 gm/dL (3.2-5.2); Albumin/Globulin Ratio 1.7 (1.0-2.3); Alkaline Phosphatase 60 U/L (39-117); Bilirubin,Total 0.6 mg/dL (0.1-1.0); Blood Urea Nitrogen < 2 mg/dL (6-20); Calcium 8.2 mg/dL (8.6-10.4); Carbon Dioxide 25 mmol/L (22-30); Chloride 104 mmol/L (96-108); Globulin 1.9 gm/dL (2.2-3.7); Glomerular Filtration Rate 127; Glucose 86 mg/dL (70-105)
[2021-11-02] MEDS: NICOTINE 21 MG PATCH TOPICAL SCH (08:30)
[2021-11-02] MEDS ORDERED: POTASSIUM CHLORIDE 80 MEQ in DEXTROSE 5% IN WATER 500 ML IV ONE (08:55)
[2021-11-02] MEDS ORDERED: POTASSIUM CHLORIDE 40 MEQ in DEXTROSE 5% IN WATER 500 ML IV SCH (10:00)
--- NOTE | 2021-11-02 11:03 | Discharge Summary ---
Discharge Provider Provider IMPORTANT FOLLOW-UP INFORMATION FOR PCP: Patient information: Note initiated : 11/02/21 at 11:01 am Service Date, if different from initiated Date: [] Patient: Norah Luevano 31 y/o F admitted on 10/29/21 for N/V. Chief Complaint: [] Date of admission: 10/29/21 17:24 Discharge date: 11/02/21 Primary care physician: DIOMEDES Kendall Consults: 10/29/21 Consult to Physician [CONS] Stat Comment: Consulting Provider: Kiran Burger Reason For Exam: Physician to Consult COURSE Hospital Course Hospital course: Delirium tremens Endotracheally intubated and mechanically ventilated 10/31/2021 --Patient was severely agitated 10/31 requiring 22 mg of lorazepam in 3 hours and multiple doses of Zyprexa, diazepam IM, Versed, phenobarbital. She was also started on Precedex drip without any improvement. Patient was threatening to harm others and she was at risk for self-harm with agitation and risk of seizure. I had the ED physician evaluate her as well and tried nasal Versed and IM phenobarbital. For her own safety and airway safety-discussed with the patient's mom in the ICU and decided to endotracheal intubation and mechanical ventilation started on propofol, Versed for sedation and fentanyl for analgesia We also found some powder in her trazodone bottle which she was having in the room-repeated urine drug screen No other etiology other than alcohol withdrawal identified Plan Patient remain pharmacologically sedated and mechanically ventilated Try to wean her off of sedation without any success even decreasing the dose of propofol patient was getting agitated with a RIS score of +1 She is on max dose of Versed, propofol at 80 mg and fentanyl 125 mcg Patient probably need prolonged intubation and higher level of care for safe extubation Discussed with our team, discussed with the patient's mother and decided to transfer her to higher level of care for prolonged ventilation and safe extubati on Will need to reassess her mentation once she is off of sedation Follow-up ABG and chest x-ray as needed Possible aspiration pneumonitis Patient had a witnessed episode of aspiration during agitation Started on Zosyn chest x-ray no evidence of pneumonia Ordered sputum culture and gram stain Lactic acidosis due to alcoholic liver disease and cirrhosis She had a persistent lactic acidosis without any hypotension or evidence of infection Persistent nausea vomiting-improved 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 Alcoholic liver disease Patient CT scan showing no features of early liver cirrhosis Explained to the patient and her mom who works here at the hospital Needs to follow-up with gastroenterology outpatient Lactic acidosis probably due to liver disease Hypokalemia Hypomagnesemia Hypomagnesemia improved Potassium replacement ordered DVT prophylaxis-subcu Lovenox CODE STATUS-full code 31-year-old female with a history of alcoholic liver disease and recent episode of alcohol withdrawal and pyelonephritis was brought to the ER because of persistent abdominal pain nausea vomiting for last 3 days patient had multiple episodes of nonbilious emesis history of significant alcohol intake 5 drinks per day and last drink was 3 days ago patient was having anxiety and tremors. Initial evaluation in the ED showing significant dehydration hypokalemia lactic acidosis and alcohol withdrawal. No evidence of any infection 10/30 Patient continued to be hypokalemic and hypomagnesemic and ordered replacement She is having severe withdrawal with a CIWA score 25 and patient was moved to the progressive care unit Patient's abdominal pain feeling better Ordered and add on lipase 10/31 Since last night patient agitation has been increasing started having hallucinations She was very agitated this morning around 6:00 needing about 22 mg of lorazepam, multiple dose of Zyprexa, diazepam 10 mg, Versed 2 mg intranasal, phenobarbital 120 IM She continues to be agitated 6 people needed to hold her down. She was physically and verbally abusive and harming herself and harming others. After multiple discussion with the patient's mother and I also have the ED physician evaluate her. We decided to endotracheally intubate and mechanically ventilate the patient for her safety and airway safety She underwent rapid sequential intubation by [employer]. Post intubation she was started on propofol at max dose and started Versed and fentanyl for analgesia Follow-up chest x-ray showing ET tube 5 cm above the amanda and we will continue titrating her ventilator per ABG We found some powder in her trazodone bottle and repeat her urine drug screen 11/01 Patient is pharmacologically sedated and mechanically ventilated this morning her oxygenation >95 % on 50% FiO2 Plan is to try to wean off the sedation and extubation She is off of Versed we will try to wean off the propofol and keep the fentanyl for analgesia 11/02 Unable to wean her off of sedation due to severe agitation Patient is on max dose of Versed and propofol at 80 mg, fentanyl 125 mcg and patient continued having intermittent agitation with a rass +1. This is her third day on sedation and patient continued having agitation she probably need higher level of care to safely extubate with our limited resources in the ICU. Discussed with our team here, discussed with the patient's mother and decided to transfer her to higher level We do not have any bed in the [facility], discussed with investment fund manager at [facility] and graciously accepted the patient for higher level of care We will keep the patient on Versed and propofol and fentanyl Ordered a CAT scan this morning no acute intracranial process based on my reading official report pending Review of systems Unable to obtain Physical exam Mechanically ventilated pharmacologically sedated with a RASS score of +1, intermittent cough reflex and moving bilateral extremities equal Pupils are reactive Neck: full ROM Respiratory: Good cough reflex moving extremities bilaterally equal Cardiovascular: Sinus tachycardia GI/Abdominal: soft, nontender, no guarding. Extremities: No deficits identified Neurological: No focal deficit identified Psychiatric: Unable to assess Skin: Multiple bruises Discharge diagnosis: Delirium tremens Time Spent with Patient Time attestation: Total time spent providing and/or coordinating discharge services: Time spent: Greater than 30 minutes EXAM Constitutional Vitals: Temp Pulse Resp BP Pulse Ox 97.7 F 68 12 124/81 100 11/02/21 09:57 11/02/21 09:57 11/02/21 10:25 11/02/21 09:57 11/02/21 10:25 Discharge Data Data Completed and Pending Labs on day of discharge: Labs from last 24 hours 11/02/21 11/02/21 11/02/21 05:53 05:53 05:53 WBC RBC Hgb Hct MCV MCH MCHC RDW Plt Count MPV Neut % (Auto) Lymph % (Auto) [place] % (Auto) Eos % (Auto) Baso % (Auto) Lymph # (Auto) [place] # (Auto) Eos # (Auto) Baso # (Auto) Absolute Neutrophils POC pH POC pCO2 POC pO2 POC HCO3 POC Total CO2 POC ABG Base Excess Hgb O2 Saturation Sodium 138 Potassium 3.0 L Chloride 104 Carbon Dioxide 25 Anion Gap 9.0 BUN < 2 L Creatinine 0.5 L GFR Calculation 127 Glucose 86 POC Arterial Lactate Calcium 8.2 L Magnesium 1.6 Total Bilirubin 0.6 AST 30 ALT 26 Alkaline Phosphatase 60 Ammonia 32 C-Reactive Protein 5.10 H Total Protein 5.1 L Albumin 3.2 Globulin 1.9 L Albumin/Globulin Ratio 1.7 Procalcitonin 0.07 11/02/21 11/01/21 05:53 15:03 WBC 9.3 RBC 3.36 L Hgb 9.9 L Hct 30.5 L MCV 90.8 MCH 29.5 MCHC 32.5 RDW 14.1 Plt Count 91 L MPV 12.3 H Neut % (Auto) 71.1 Lymph % (Auto) 17.2 [place] % (Auto) 7.1 Eos % (Auto) 4.1 Baso % (Auto) 0.5 Lymph # (Auto) 1.60 [place] # (Auto) 0.66 Eos # (Auto) 0.38 Baso # (Auto) 0.05 Absolute Neutrophils 6.60 POC pH 7.43 POC pCO2 40.9 POC pO2 54 L POC HCO3 27.3 H POC Total CO2 28.0 H POC ABG Base Excess 3.0 Hgb O2 Saturation 89.0 L Sodium Potassium Chloride Carbon Dioxide Anion Gap BUN Creatinine GFR Calculation Glucose POC Arterial Lactate 0.6 Calcium Magnesium Total Bilirubin AST ALT Alkaline Phosphatase Ammonia C-Reactive Protein Total Protein Albumin Globulin Albumin/Globulin Ratio Procalcitonin Discharge Plan Patient/Caregiver Discharge Instructions Prescriptions: No Action sertraline [Zoloft] 25 mg tablet 25 mg PO QDAY Qty: 30 1RF Rx Instructions: Take 25mg daily for two weeks and then 50mg daily. Take medication with food. hydroxyzine HCl 25 mg tablet 25 mg PO TID PRN (Reason: anxiety) Qty: 30 1RF trazodone 50 mg tablet 50 mg PO QHS PRN (Reason: insomnia) Qty: 30 1RF Follow Up Plan Follow up with: Diamond Newman ARNP [Primary Care Provider] - Patient Disposition: [facility] Plan of Treatment: Delirium tremens Endotracheally intubated and mechanically ventilated 10/31/2021 Patient was severely agitated this morning and requiring 22 mg of lorazepam and 3 hours and multiple doses of Zyprexa, diazepam IM, Versed phenobarbital. She was also started on Precedex drip without any improvement Patient was threatening to harm others and she was at risk for self-harm with agitation and risk of seizure. I had the ED physician evaluate her as well and tried nasal Versed and IM phenobarbital. For her own safety and airway safety-discussed with the patient's mom in the ICU and decided to endotracheal intubation and mechanical ventilation Plan is to keep her on propofol, Versed for sedation and fentanyl for analgesia We also found some powder in her trazodone bottle which she was having in the room-repeated urine drug screen Will follow-up ABG Titrate the propofol and Versed Monitor vital signs closely No other etiology other than alcohol withdrawal identified Plan Patient remain pharmacologically sedated and mechanically ventilated this morning Plan is to try to wean off the sedation and extubation if possible Patient has good respiratory effort and good cough and good oxygenation Will need to reassess her mentation once she is off of sedation Follow-up ABG and chest x-ray as needed Persistent nausea vomiting-improved 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 Alcoholic liver disease Patient CT scan showing no features of early liver cirrhosis Explained to the patient and her mom who works here at the hospital Needs to follow-up with gastroenterology outpatient Lactic acidosis probably due to liver disease Hypokalemia Hypomagnesemia Hypomagnesemia improved Potassium replacement ordered DVT prophylaxis-subcu Lovenox CODE STATUS-full code CPT code 15803 Total critical care time spent 40 min Prognosis: Fair Rehab Potential: Critical Discharge Orders: Discharge Order (Routine); Ordered 11/02/21 Ordered By: Kiran BARBOSA VTE Deep Vein Thrombosis/Pulmonary Embolism Present on Admission: No
[2021-11-02] MEDS: 0.9 % SODIUM CHLORIDE 250 ML IV SCH (12:44)
[2021-11-02] MEDS: fentaNYL 2,500 MCG in 0.9 % SODIUM CHLORIDE 200 ML IV SCH (12:44)
--- NOTE | 2021-11-02 13:23 | Cat Scan Report ---
CLINICAL INFORMATION: Mildly vomiting and headache COMPARISON: Brain MRI 02/27/2009 TECHNIQUE: 2.5 mm helical slices were obtained in the skull base to vertex. Following reconstruction, axial reformatted images were reviewed at bone and parenchymal windows. The exam was performed using radiation dose optimization techniques including, but not limited to, automated exposure control, adjustment of the mA and/or kV according to patient size and use of iterative reconstruction technique. FINDINGS: The ventricles, sulci, fissures, and cisterns are normal in size and configuration. No extra-axial fluid collections are identified. The cerebrum, brainstem and cerebellum are unremarkable. There is no evidence of hemorrhage, mass effect, or edema. Bone windows show no osseous abnormality. IMPRESSION: Normal head CT without contrast. Interpreted and Authenticated by: Amadeo Shell 11/02/21
--- NOTE | 2021-11-02 13:26 | XRay Report ---
CLINICAL INFORMATION: Dyspnea COMPARISON: None. TECHNIQUE: PA and Lateral views FINDINGS: Endotracheal, NG tube and PICC line all in stable satisfactory position The heart size, mediastinum and pulmonary vessels are unremarkable. The lungs are clear. There are no effusions. The bones and soft tissues are within normal limits. IMPRESSION: Normal chest. Interpreted and Authenticated by: Amadeo Shell 11/02/21
== END 2021-11-02 12:30 | disposition short-term general hospital (02) | DRG 896 ==
LOC: ED 13:52 → MEDSUR 17:24 → ICU 10-30 07:36
PROVIDERS: ADMIT Internal Medicine; ATTEND Internal Medicine